=== PATIENT | male | born 1935 | race Caucasian/White ===

== ENCOUNTER 2016-12-06 23:25 | Emergency (ER) | payer MEDICARE, BC ==
--- NOTE | ~2016-12-06 | EKG ---
PATIENT: HARLEY MILLER UNIT #: [id number] Ventricular Rate: 111 BPM Atrial Rate: 111 BPM P-R Interval: 138 ms QRS Duration: 114 ms Q-T Interval: 340 ms QTC Calculation(Bezet): 462 ms P [place]: 70 degrees Calculated R [place]: -85 degrees Calculated T [place]: 90 degrees Diagnosis Line: Sinus tachycardia with occasional Premature Diagnosis Line: ventricular complexes Diagnosis Line: Left anterior fascicular block Diagnosis Line: Non-specific intra-ventricular conduction delay Diagnosis Line: Abnormal ECG Diagnosis Line: When compared with ECG of 23-SEP-2016 06:42, Diagnosis Line: rate faster Diagnosis Line: Confirmed by NARCISA AGUILERA MD ([id number]) on Diagnosis Line: 01/22/2017 6:58:01 AM INTERPRETING : PAT
--- NOTE | ~2016-12-06 | CR72 ---
[facility]. [facility] A Service of [facility] & [facility] RADIOLOGY TEXT RESULTS PATIENT: HARLEY MILLER LOCATION: SED : 33 UNIT #: [id number] AGE: [address]: Yosvany Melton MD SEX: M ORDER DR: [id number] [place] [address] [id number] E MR#: [id number] Acc #: [id number] NAME: HARLEY MILLER. : 1935 SEX: M STUDY DATE/TIME: UNIT: SED ROOM: STUDY DESCRIPTION: CR Chest Single View Portable Attending Physician: Yosvany Melton M.D. Ordering Physician: Yosvany Melton M.D. Primary Care Physician: Sylvia Negron M.D. MEDICAL IMAGING REPORT This report is preliminary unless electronic signature is present. EXAM Portable chest 12/07 at 01:16 INDICATIONS Shortness of air today. History of coronary artery disease. Patient also reports chills and body aches. The patient has a history of lung cancer. TECHNIQUE/COMPARISON AP portable chest is compared with 09/23/2016 FINDINGS Cardiac and mediastinal contours are stable status post CABG. The lungs are emphysematous but clear. No pneumothorax. Prominent central pulmonary arteries may reflect pulmonary arterial hypertension. IMPRESSION Emphysema and CABG change. No acute findings in the chest. Dictated by... Daniel Gutierrez Jr., M.D. THIS IS AN ELECTRONICALLY VERIFIED REPORT Daniel Gutierrez Jr., M.D. at 12/07/2016 9:31 PM RLK/lenka TD: 12/07/2016 16:04 JOB #: [id number] MEDICAL IMAGING REPORT
[~2016-12-06 23:25] MED LIST: ACETAMINOPHEN PO; ACETAMINOPHEN PR; ACETAMINOPHEN650 M1 PO; ASPIRIN PO; ASPIRIN81 M2 PO; ASPIRIN81 MG PO; ATORVASTATIN CA10 MG PO; BYSTOLIC5 MG PO; CARAFATE; CIPRO PO; CIPRO250 MG/5 M PO; CLARITIN D PO; CLEOCIN PO; CLOPIDOGREL BIS75 MG PO; CLOPIDOGREL75 MG PO; FERROUS GLUCON324 MG PO; FLAGYL PO; FOSAMAX PO; HYDROXYZINE HCL25 M1 PO; IMDUR-ER30 M1 PO; IMDUR-ER30 MG PO; IMODIUM2 MG PO; LASIX20 MG PO; LISINOPRIL2.5 MG PO; MEN'S ONE DAILY1 TA1 PO; MOBIC15 MG PO; NITROSTAT0.4 MG SL; OXYGEN; PANTOPRAZOLE SO40 MG PO; PHENERGAN PO; PRINIVIL20 M1 PO; PROAIR HFA8.5 GM INH; PROTONIX PO; SPIRIVA18 MCG INH; STIOLTO RESPIMAT4 GM; STIOLTO RESPIMAT4 GM PO; TENORMIN25 MG PO; THEO-DUR300 MG PO; UNIPHYLL PO; ZEBETA5 MG PO; ZETIA PO
[2016-12-06 23:34] LABS: BASOPHIL# 0.1 X10e3 (0-0.3); BASOPHIL% 0.8 % (0-2.5); EOSINOPHIL# 0.2 X10e3 (0-0.7); EOSINOPHIL% 2.1 % (0.0-7.0); HEMATOCRIT 39.7 % (38.0-50.0); HEMOGLOBIN 12.9 gm/dL (13.0-16.0); LYMPHOCYTE# 0.7 X10e3 (1.0-3.5); LYMPHOCYTE% 9.6 % (17.0-45.0); MEAN CELL VOLUME 100.3 FL (83-96); MEAN CORPUSCULAR HEMOGLOBIN 32.6 PG (28-34); MEAN CORPUSCULAR HGB CONC 32.5 g/dL (30-36); MEAN PLATELET VOLUME 7.8 FL (6.5-11.5); MONOCYTE# 0.2 X10e3 (0-1.0); MONOCYTE% 2.9 % (3.0-12.0); NEUTROPHIL# 6.4 X10e3 (1.5-7.1); NEUTROPHIL% 84.6 % (40-75); PLATELET COUNT 163 X10e3 (140-420); RED BLOOD COUNT 3.96 X10e (3.90-5.60); RED CELL DISTRIBUTION WIDTH 13.8 % (11.0-15.5); WHITE BLOOD COUNT 7.5 X10e3 (4.0-10.5)
[2016-12-06 23:35] LABS: DIFF IND NO
[2016-12-06 23:41] LABS: PROTHROMBIN TIME (PATIENT) 11.3 SECONDS (9.5-12.4)
[2016-12-06 23:49] LABS: ALBUMIN SERUM 4.3 g/dL (3.5-5.0); ALKALINE PHOSPHATASE 157 U/L (32-92); ALT (SGPT) 25 U/L (10-40); AST (SGOT) 39 U/L (10-42); BILIRUBIN, DIRECT 0.1 mg/dL (0.0-0.2); BILIRUBIN,INDIRECT 0.5 mg/dL (0.0-0.9); BILIRUBIN,TOTAL 0.6 mg/dL (0.2-2.0); BLOOD UREA NITROGEN 22 mg/dL (9-23); BUN/CREATININE RATIO 18.33; CALCIUM SERUM 9.6 mg/dL (8.4-10.2); CARBON DIOXIDE 30 mmol/L (22-31); CHLORIDE 101 mmol/L (100-111); CREATININE SERUM 1.2 mg/dL (0.6-1.4); GLOM FILT RATE Estimated ABOVE60 mL/min (>60); GLUCOSE FASTING 139 mg/dL (70-110); POTASSIUM 4.3 mmol/L (3.5-5.1); PROTEIN TOTAL SERUM 7.2 g/dL (6.0-8.3); SODIUM 138 mmol/L (135-145)
[2016-12-07 00:19] LABS: POC - CKMB 2.4 ng/mL (0.0-7.9)
[2016-12-07 00:20] LABS: POC - TROPONIN <0.05 ng/mL (<=0.05)
[2016-12-07 00:28] LABS: INFLUENZA A NEG (NEG); INFLUENZA B NEG (NEG)
[2016-12-07 01:10] LABS: URINE SOURCE CLEAN CATCH
[2016-12-07 01:12] LABS: URINE APPEARANCE CLEAR; URINE BILIRUBIN NEG (NEG); URINE BLOOD NEG (NEG); URINE COLOR YELLOW; URINE GLUCOSE NEG (NORM); URINE KETONE NEG (NEG); URINE LEUKOCYTE ESTERASE NEG (NEG); URINE NITRATE NEG (NEG); URINE PROTEIN NEG (NEG); URINE UROBILINOGEN 0.2 MG/DL (NORM)
[2016-12-07 01:19] LABS: MICRO INDICATED? NO
[2016-12-07] MEDS ORDERED: ZITHROMAX1 G/PKT PO (02:22)
[2016-12-07] MEDS ORDERED: ALBUTEROL17 GM INH (02:22)
[2016-12-07] MEDS ORDERED: HYDROMET SYRUP480 ML PO (02:23)
== END 2016-12-07 02:23 | disposition home or self-care (01) ==
LOC: SED 23:25
PROVIDERS: Emergency Medicine
DX: J44.0 Chronic obstructive pulmonary disease with (acute) lower respiratory infection (principal); J44.1 Chronic obstructive pulmonary disease with (acute) exacerbation; J20.9 Acute bronchitis, unspecified; Z87.891 Personal history of nicotine dependence; Z95.1 Presence of aortocoronary bypass graft; Z90.49 Acquired absence of other specified parts of digestive tract; Z88.0 Allergy status to penicillin
CPT/HCPCS: 36415; 71010; 80048; 80076; 81003; 82553; 83605; 83874; 84484; 85025; 85610; 85730; 87040; 87804; 93005; 94640; 96361; 96374; 99284; J2405

== ENCOUNTER 2016-12-08 02:43 | Emergency (ER) | payer MEDICARE, BC ==
--- NOTE | ~2016-12-08 | CT57 ---
[facility]. [facility] A Service of [facility] & [facility] RADIOLOGY TEXT RESULTS PATIENT: HARLEY MILLER LOCATION: SED : 33 UNIT #: [id number] AGE: [address]: Maynor Worthington MD SEX: M ORDER DR: [id number] [place] [id number] E MR#: [id number] [facility] #: [id number] NAME: HARLEY MILLER : 1935 SEX: M STUDY DATE/TIME: 12/08/2016 03:22 UNIT: SED ROOM: STUDY DESCRIPTION: CT Chest Wo Cont Attending Physician: Maynor Worthington M.D. Ordering Physician: Maynor Worthington M.D. Primary Care Physician: Sylvia Negron M.D. MEDICAL IMAGING REPORT This report is preliminary unless electronic signature is present. EXAM Chest CT, 12/08 at 03:22. INDICATIONS Shortness of air and neck pain that started yesterday. History of lung cancer. History of coronary artery disease. COPD. TECHNIQUE Axial images were obtained through the chest without contrast. Multiplanar reformats were obtained. This CT exam was performed with one or more of the following radiation dose reduction techniques: automatic exposure control, adjustment of mA and/or kV according to patient size, and iterative reconstruction. COMPARISON Comparison is made with 09/12/2016. FINDINGS The exam is degraded by the lack of IV contrast. There is atherosclerotic disease and coronary artery disease. Patient is status post CABG. No pleural or pericardial effusion is seen. There is no adenopathy. There is emphysema. Spiculated left upper lobe density is again seen abutting the mediastinum. This is presumably the patient's primary tumor status post radiation therapy. The bulk of the abnormality today measures about 1.5 x 4.2 cm where it was previously about 2.4 x 4.9 cm. No new pulmonary parenchymal abnormalities are seen. 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 There are no suspicious osseous lesions. Upper abdomen demonstrates changes of cholecystectomy. Cyst in the upper poles of both kidneys are noted. IMPRESSION 1. Decreased size of the patient's left upper lobe tumor compatible with response to therapy. No new pulmonary parenchymal abnormalities are STS. [facility] A Service of [facility] & [facility] RADIOLOGY TEXT RESULTS PATIENT: HARLEY MILLER LOCATION: [facility] : 33 UNIT #: [id number] AGE: [address]: Maynor Worthington MD SEX: M ORDER DR: seen. 2. Emphysema. 3. Atherosclerotic disease and coronary artery disease. Dictated by... Daniel Gutierrez Jr., M.D. THIS IS AN ELECTRONICALLY VERIFIED REPORT Daniel Gutierrez Jr., M.D. at 12/09/2016 6:40 AM JOHANNA/jj TD: 12/08/2016 13:01 JOB #: [id number] MEDICAL IMAGING REPORT
--- NOTE | ~2016-12-08 | CR58 ---
[facility]. [facility] A Service of [facility] & [facility] / [facility] RADIOLOGY TEXT RESULTS PATIENT: HARLEY MILLER LOCATION: SED : 33 UNIT #: [id number] AGE: [address]: Maynor Worthington MD SEX: M ORDER DR: [id number] [place] [address] [id number] E MR#: [id number] Acc #: [id number] NAME: HARLEY MILLER : 1935 SEX: M STUDY DATE/TIME: 12/08/2016 02:52 UNIT: SED ROOM: STUDY DESCRIPTION: CR Cervical Spine 2 or 3 Views Attending Physician: Maynor Worthington M.D. Ordering Physician: Maynor Worthington M.D. Primary Care Physician: Sylvia Negron M.D. MEDICAL IMAGING REPORT This report is preliminary unless electronic signature is present. EXAM Cervical spine 12/08/2016 02:52 INDICATION Neck pain and cramping that started yesterday. No trauma. FINDINGS 5 views of the cervical spine were obtained. No comparison. The patient is osteopenic. No fracture or subluxation is seen. There is multilevel facet arthropathy. Disc spaces are well maintained. Prevertebral soft tissues are normal. IMPRESSION Osteopenia with multilevel facet arthropathy. No fracture or subluxation is seen. Dictated by... Daniel Gutierrez Jr., M.D. THIS IS AN ELECTRONICALLY VERIFIED REPORT Daniel Gutierrez Jr., M.D. at 12/09/2016 6:40 AM JOHANNA/eyad TD: 12/08/2016 12:57 JOB #: [id number] MEDICAL IMAGING REPORT
--- NOTE | ~2016-12-08 | EKG ---
PATIENT: HARLEY MILLER UNIT #: [id number] Ventricular Rate: 66 BPM Atrial Rate: 66 BPM P-R Interval: 152 ms QRS Duration: 118 ms Q-T Interval: 416 ms QTC Calculation(Bezet): 436 ms P [place]: 67 degrees Calculated R [place]: -83 degrees Calculated T [place]: 83 degrees Diagnosis Line: Sinus rhythm with occasional Premature ventricular Diagnosis Line: complexes Diagnosis Line: Left anterior fascicular block Diagnosis Line: Non-specific intra-ventricular conduction delay Diagnosis Line: Abnormal ECG Diagnosis Line: When compared with ECG of 06-DEC-2016 23:07, Diagnosis Line: (unconfirmed) Diagnosis Line: Vent. rate has decreased BY 45 BPM Diagnosis Line: Questionable change in initial forces of Septal Diagnosis Line: leads Diagnosis Line: ST no longer depressed in Anterior leads Diagnosis Line: T wave amplitude has decreased in Inferior leads Diagnosis Line: Confirmed by NARCISA AGUILEAR MD ([id number]) on Diagnosis Line: 01/22/2017 6:59:30 AM INTERPRETING SINA STEWART
[~2016-12-08 02:43] MED LIST changes: +ALBUTEROL17 GM INH; +HYDROMET SYRUP480 ML PO; +ZITHROMAX1 G/PKT PO
[2016-12-08 03:03] LABS: POC - CKMB 2.3 ng/mL (0.0-7.9); POC - TROPONIN 0.08 ng/mL (<=0.05)
== END 2016-12-08 07:19 ==
LOC: SED 02:43
PROVIDERS: Emergency Medicine
DX: I21.4 Non-ST elevation (NSTEMI) myocardial infarction (principal); M54.2 Cervicalgia; Z88.0 Allergy status to penicillin; Z79.899 Other long term (current) drug therapy; Z79.82 Long term (current) use of aspirin
CPT/HCPCS: 71250; 72040; 82553; 83874; 84484; 93005; 99285; J1650

== ENCOUNTER → 2017-02-25 | Outpatient (CLI) | payer MEDICARE, BC ==
[~2017-02-25] MED LIST changes: +CARVEDILOL6.25 MG; +COREG6.25 MG PO; +DULERA 200 MCG/13 GM INH; +IPRAT-ALBUT 0.5-3 ML; +IPRAT-ALBUT 0.5-3 ML NEB; +IPRATR-ALBUTEROL3 ML INH; +ISOSORBIDE MONO30 M1 PO; +LIPITOR; +NITROQUICK0.4 MG PO; +PATIENT'S PHARMACY; +PREDNISONE PO; +REQUIP1 MG; +REQUIP1 MG PO; +SYMBICORT; +SYMBICORT INH; +TOPROL XL PO; +TYLENOL325 M1 PO; +ZITHROMAX PO
--- NOTE | ~2017-02-25 | US136 ---
[facility] A Service of [facility] / [facility] RADIOLOGY TEXT RESULTS PATIENT: HARLEY MILLER LOCATION: CNIV : 33 UNIT #: [id number] AGE: [address]: ySlvia Negron MD SEX: M ORDER DR: [id number] [facility] [address] [place], [place] [address] [id number] MR#: [id number] Acc #: [id number] NAME: HARLEY MILLER : 1935 SEX: M STUDY DATE/TIME: 02/25/2017 14:52 UNIT: CNIV ROOM: STUDY DESCRIPTION: US U/L Ext Art Study [facility] Bil Attending Physician: Sylvia Negron M.D. Referring Physician: Sylvia Negron M.D. Ordering Physician: Sylvia Negron M.D. Primary Care Physician: Sylvia Negron M.D. MEDICAL IMAGING REPORT This report is preliminary unless electronic signature is present EXAM Lower extremity SERGE, 02/26/2017. HISTORY Claudication. FINDINGS The right brachial pressure is 140, left is 152. Right dorsalis pedis pressure is 115, posterior tibial 124, for an SERGE of 0.82 and a first toe pressure of 96 mmHg. The left dorsalis pedis pressure is 90, posterior tibial 95, for an SERGE of 0.63 and a first toe pressure of 75 mmHg. PVR wave forms at the ankle levels are diminished significantly bilaterally. First digital wave forms are intact bilaterally. Arterial wave forms at the dorsalis pedis and posterior tibial arteries demonstrate biphasic wave form at the right dorsalis pedis and posterior tibial artery and monophasic-appearing wave forms at the left dorsalis pedis and posterior tibial artery. IMPRESSION 1. Mild arterial insufficiency of the right lower extremity with adequate perfusion of the first toe. 2. Moderate arterial insufficiency of the left lower extremity with adequate perfusion of the first toe. Dictated by... Ankit Garcia M.D. THIS IS AN ELECTRONICALLY VERIFIED REPORT [facility] A Service of [facility] RADIOLOGY TEXT RESULTS PATIENT: HARLEY MILLER LOCATION: IV : 33 UNIT #: [id number] AGE: [address]: Sylvia Negron MD SEX: M ORDER DR: Ankit Garcia M.D. at 03/04/2017 11:00 AM Bienvenido TD: 02/26/2017 12:33 JOB #: [id number] MEDICAL IMAGING REPORT Page 1 of 1 COPY
== END | disposition home or self-care (01) ==
LOC: CNIV 14:43
DX: I73.9 Peripheral vascular disease, unspecified (principal)
CPT/HCPCS: 93922

== ENCOUNTER 2017-03-04 22:22 | Emergency (ER) | payer MEDICARE, BC ==
--- NOTE | ~2017-03-04 | CR72 ---
[facility] A Service of [facility] RADIOLOGY TEXT RESULTS PATIENT: HARLEY MILLER LOCATION: SED : 33 UNIT #: [id number] AGE: [address]: Gabriel Landa MD SEX: M ORDER DR: [id number] [place] [address] [id number] E MR#: [id number] Acc #: [id number] NAME: HARLEY MILLER. : 1935 SEX: M STUDY DATE/TIME: 03/04/2017 22:55 UNIT: SED ROOM: STUDY DESCRIPTION: CR Chest Single View Portable Attending Physician: Gabriel Landa M.D. Ordering Physician: Gabriel Landa M.D. Primary Care Physician: Sylvia Negron M.D. MEDICAL IMAGING REPORT This report is preliminary unless electronic signature is present. EXAM Portable chest. INDICATION Cough and fever for the past week. PROCEDURE Frontal view of the chest. COMPARISON 12/07/2016 FINDINGS Heart size is unchanged. There is no new dense consolidation. No visible pleural fluid or pneumothorax. IMPRESSION 1. No active process. No dense consolidation. 2. Chronic changes in both lungs are stable. Dictated by... Dereck Pool M.D. THIS IS AN ELECTRONICALLY VERIFIED REPORT Dereck Pool M.D. at 03/09/2017 7:26 AM EED/bertha TD: 03/05/2017 09:38 JOB #: [id number] [facility] A Service of [facility] RADIOLOGY TEXT RESULTS PATIENT: HARLEY MILLER LOCATION: SED : 33 UNIT #: [id number] AGE: [address]: Gabriel Landa MD SEX: M ORDER DR: MEDICAL IMAGING REPORT Page 1 of 1
--- NOTE | ~2017-03-04 | EKG ---
PATIENT: HARLEY MILLER UNIT #: [id number] Ventricular Rate: 100 BPM Atrial Rate: 100 BPM P-R Interval: 136 ms QRS Duration: 112 ms Q-T Interval: 340 ms QTC Calculation(Bezet): 438 ms P [place]: 70 degrees Calculated R [place]: -83 degrees Calculated T [place]: 87 degrees Diagnosis Line: Normal sinus rhythm Diagnosis Line: Possible Left atrial enlargement Diagnosis Line: Left anterior fascicular block Diagnosis Line: Septal infarct (cited on or before 04-MAR-2017) Diagnosis Line: Lateral infarct (cited on or before 04-MAR-2017) Diagnosis Line: Abnormal ECG Diagnosis Line: When compared with ECG of 08-DEC-2016 04:03, Diagnosis Line: Premature ventricular complexes are no longer Diagnosis Line: Present Diagnosis Line: Vent. rate has increased BY 34 BPM Diagnosis Line: Questionable change in initial forces of Septal Diagnosis Line: leads Diagnosis Line: ST no longer depressed in Inferior leads Diagnosis Line: Confirmed by EDGAR YU MD ([id number]) on Diagnosis Line: 03/05/2017 7:12:34 PM INTERPRETING MD: GIGI RICE
[~2017-03-04 22:22] MED LIST changes: -CARVEDILOL6.25 MG; -COREG6.25 MG PO; -DULERA 200 MCG/13 GM INH; -IPRAT-ALBUT 0.5-3 ML; -IPRAT-ALBUT 0.5-3 ML NEB; -IPRATR-ALBUTEROL3 ML INH; -ISOSORBIDE MONO30 M1 PO; -LIPITOR; -NITROQUICK0.4 MG PO; -PATIENT'S PHARMACY; -PREDNISONE PO; -REQUIP1 MG; -REQUIP1 MG PO; -SYMBICORT; -SYMBICORT INH; -TOPROL XL PO; -TYLENOL325 M1 PO; -ZITHROMAX PO
[2017-03-04] MEDS ORDERED: SYMBICORT (22:32)
[2017-03-04] MEDS ORDERED: REQUIP1 MG (22:33)
[2017-03-04] MEDS ORDERED: IPRAT-ALBUT 0.5-3 ML (22:33)
[2017-03-04] MEDS ORDERED: LIPITOR (22:34)
[2017-03-04] MEDS ORDERED: CARVEDILOL6.25 MG (22:34)
[2017-03-04 23:19] LABS: BASOPHIL% 0.6 % (0-2.5); EOSINOPHIL# 0.1 X10e3 (0-0.7); EOSINOPHIL% 0.8 % (0.0-7.0); HEMOGLOBIN 12.3 gm/dL (13.0-16.0); LYMPHOCYTE# 0.4 X10e3 (1.0-3.5); LYMPHOCYTE% 5.5 % (17.0-45.0); MEAN CELL VOLUME 98.5 FL (83-96); MEAN CORPUSCULAR HEMOGLOBIN 33.6 PG (28-34); MEAN CORPUSCULAR HGB CONC 34.1 g/dL (30-36); MEAN PLATELET VOLUME 8.6 FL (6.5-11.5); MONOCYTE% 12.3 % (3.0-12.0); NEUTROPHIL# 6.3 X10e3 (1.5-7.1); NEUTROPHIL% 80.8 % (40-75); PLATELET COUNT 188 X10e3 (140-420); RED BLOOD COUNT 3.65 X10e (3.90-5.60); RED CELL DISTRIBUTION WIDTH 13.5 % (11.0-15.5); WHITE BLOOD COUNT 7.8 X10e3 (4.0-10.5)
[2017-03-04 23:21] LABS: DIFF IND NO
[2017-03-04 23:35] LABS: BUN/CREATININE RATIO 23.84; CALCIUM SERUM 9.6 mg/dL (8.4-10.2); CREATININE SERUM 1.3 mg/dL (0.6-1.4); GLOM FILT RATE Estimated 50.5 mL/min (>60)
[2017-03-04 23:37] LABS: POC - CKMB 4.6 ng/mL (0.0-7.9); POC - TROPONIN <0.05 ng/mL (<=0.05)
== END 2017-03-05 01:34 | disposition home or self-care (01) ==
LOC: SED 22:22
PROVIDERS: Emergency Medicine
DX: J44.1 Chronic obstructive pulmonary disease with (acute) exacerbation (principal); I10 Essential (primary) hypertension; I73.9 Peripheral vascular disease, unspecified; I25.2 Old myocardial infarction; K21.9 Gastro-esophageal reflux disease without esophagitis; Z88.0 Allergy status to penicillin; Z79.82 Long term (current) use of aspirin; Z79.899 Other long term (current) drug therapy
CPT/HCPCS: 36415; 71010; 80048; 82553; 83880; 84484; 85025; 93005; 94640; 96374; 99284; J2930

== ENCOUNTER 2017-03-30 16:31 | Inpatient (IN) | payer MEDICARE, BC ==
--- NOTE | ~2017-03-30 | US84 ---
[id number] [facility] [address] [place], [place] [address] [id number] I MR#: [id number] Acc #: [id number] NAME: HARLEY MILLER : 1935 SEX: M STUDY DATE/TIME: 03/30/2017 21:48 UNIT: [facility] ROOM: [facility] STUDY DESCRIPTION: US LE Veins Complete Geoff Stdy Attending Physician: Krystina Oropeza M.D. Ordering Physician: Aicha White M.D. Primary Care Physician: Sylvia Negron M.D. MEDICAL IMAGING REPORT This report is preliminary unless electronic signature is present EXAM Bilateral lower extremity venous Doppler INDICATIONS Shortness of air and bilateral lower extremity edema for the past 2 weeks. PROCEDURE Salazar-scale color Doppler spectral imaging deep veins right and left leg. COMPARISON STUDIES None. FINDINGS Deep veins in the right and left leg compress normally and show normal color Doppler and spectral characteristics. IMPRESSION No evidence for DVT in the right or left leg. Dictated by... Dereck Pool M.D. THIS IS AN ELECTRONICALLY VERIFIED REPORT Dereck Pool M.D. at 03/31/2017 9:55 PM BOBBY/marisol TD: 03/31/2017 11:27 JOB #: [id number] MEDICAL IMAGING REPORT Page 1 of 1 COPY
--- NOTE | ~2017-03-30 | CO ---
Unit #: [id number] #: [id number] Patient: HARLEY MILLER [id number] [address] [place], [place] [address] [id number] I MR#: [id number] NAME: HARLEY MILLER. ROOM: 314 Age: 81 Sex: M Admission Date: 03/30/2017 : 1935 Attending Physician: Krystina Oropeza M.D. Primary Care Physician: Sylvia Negron M.D. Consultation Date: 03/31/2017 CONSULTATION REPORT JOB NOTE: CC: DR. LEONARDO REASON FOR CONSULTATION Dyspnea. HISTORY OF PRESENT ILLNESS This is an 81-year-old white male, who is known to Dr. Virk at [facility], who has a history of coronary artery disease where he underwent coronary artery bypass graft x4 in 1999. In 2000, he had a recurrence of chest pain and had cardiac stents placed. His last cardiac catheterization was in 2013 after a myocardial infarction where he underwent thrombectomy with drug-eluting stent to the saphenous vein graft to the diagonal branch. The patient was in his usual state of health until 4 o'clock in the morning when he developed sudden onset of dyspnea, cough, subjective fever, and chills. He had yellow to green sputum production. He denies any chest pain. Positive for paroxysmal nocturnal dyspnea, but no leg edema. Denies palpitations. He came to the emergency room for evaluation where he was admitted with respiratory failure. He was subsequently admitted to the intensive care unit. His troponin has been negative with no acute ischemic changes. BNP 1217. Chest x-ray was concerning for heart failure. PAST MEDICAL HISTORY 1. A 2D echocardiogram on 12/09/2016 at [facility] with ejection fraction of 35% to 40% with impaired left ventricular relaxation. There is mild left atrial enlargement and moderate right atrial enlargement. Trace to mild mitral regurgitation. 2. Coronary artery bypass graft x4 in 1999. 3. Angioplasty and stent to the right coronary artery in 2000, no details available. 4. Cardiac catheterization after a non-ST elevation myocardial infarction on 06/23/[address] Virk at [facility] with left main normal. LAD 100%. GALINDO to the LAD widely patent with retrograde filling of a small second diagonal branch. Saphenous vein graft to the first diagonal branch 80% with heavy thrombus burden. Saphenous vein graft to the presumed obtuse marginal branch is occluded. This is unchanged from previous angiography in 2012. Right coronary artery stents in the mid segment are widely patent. A 30% to 40% disease in the proximal to mid to distal segments are noted. No graft to the right coronary artery. 5. Status post successful thrombectomy with drug-eluting stent to the saphenous vein graft to the diagonal branch. 6. Peripheral vascular disease status post right carotid endarterectomy Unit #: [id number] #: [id number] Patient: HARLEY MILLER in 10/2014. 7. Hypertension. 8. Hyperlipidemia. 9. COPD, on home oxygen. 10. TIA. 11. Lung cancer status post radiation therapy. 12. Chronic anemia. 13. GERD. 14. Anxiety. 15. Former smoker. 16. Chronic systolic/diastolic heart failure. PAST SURGICAL HISTORY 1. Coronary artery bypass graft x4. 2. Cholecystectomy. 3. Right carotid endarterectomy. 4. Left finger I and D secondary to Staph infection. SOCIAL HISTORY The patient quit smoking in 1999. He has previously smoked for more than 50 years. Ambulates with a walker. FAMILY HISTORY Brother from a sudden cardiac in his 60s. REVIEW OF SYSTEMS CONSTITUTIONAL: Reports subjective fever and chills. No weight gain or weight loss. HEENT: No headache, hearing or vision changes, or difficulty with swallowing. No dizziness. CARDIOVASCULAR: Has no symptoms of angina. Denies palpitations. No paroxysmal nocturnal dyspnea or orthopnea. Denies syncope or near syncope. RESPIRATORY: Positive for shortness of breath with productive cough with yellow to green sputum. No hemoptysis. GASTROINTESTINAL: Positive for nausea. No abdominal pain, vomiting, or diarrhea. EXTREMITIES: Negative for lower extremity edema. PHYSICAL EXAMINATION VITAL SIGNS: Blood pressure 118/55, heart rate 97, temperature is 98.4, and BMI 18. GENERAL: This is an 81-year-old small-framed white male, who is in no acute respiratory distress. NEUROLOGIC: He is awake, alert, and oriented. There are obvious focal weaknesses. NECK: Trachea is midline. No thyromegaly. No lymphadenopathy. No jugular venous distention. HEART: S1 and S2. Heart sounds are normal. No murmurs, rubs, or clicks. Regular rate and rhythm. CHEST: Clear to exam without rales, rhonchi, or wheezes. ABDOMEN: Soft and nontender with bowel sounds present. EXTREMITIES: Without leg edema. SKIN: Pale and dry. DIAGNOSTIC STUDIES LABORATORY RESULTS: Sodium 135, potassium 4.3, BUN is 22, creatinine 1.1, and glucose 119. BNP 1217. CK total 25. Troponin less than 0.05 and 0.03. White count 10.7, hemoglobin 10.7, hematocrit 33.4, and platelet Unit #: [id number] #: [id number] Patient: AHRLEY MILLER count is 190. IMAGING STUDIES: Chest x-ray shows bilateral interstitial opaque densities, right lung airspace opaque density. CARDIOVASCULAR STUDIES: Electrocardiogram; normal sinus rhythm, rate at 83 beats per minute with right atrial enlargement. Old anterolateral SD. There is Q waves noted in the anterolateral leads. Left axis deviation. IMPRESSION 1. Angina equivalent paroxysmal nocturnal dyspnea. 2. Acute on chronic systolic/diastolic heart failure. 3. Rule out restenoses of saphenous vein graft stent. 4. Chronic obstructive pulmonary disease. 5. Status post coronary artery bypass graft in 1999 with percutaneous coronary intervention and stent to the right coronary artery in 2000. 6. Percutaneous coronary intervention and stent to the saphenous vein graft to the diagonal 06/2014. 7. History of non-small cell lung cancer, status post radiation therapy. PLAN 1. Cardiology was consulted for evaluation of dyspnea. The patient's dyspnea could be an angina equivalent. We will continue to trend cardiac enzymes and troponin to rule out myocardial infarction. Consider repeat cardiac catheterization if he has not had an ischemic evaluation in the last 1 to 2 years. We will obtain records from Dr. Virk's office. 2. Increase Lasix to diurese. 3. We will follow the patient with you. 4. Follow up with Dr. Virk upon discharge. Dictated by... Law Briggs A.P.R.N. for Nely Vides/mata TD: 04/03/2017 03:40 JOB #: [id number] CONSULTATION REPORT Page 1 of 1 X Law Briggs APRN CONSULTATION REPORT
--- NOTE | ~2017-03-30 | ST ---
Unit #: [id number] #: [id number] Patient: HARLEY MILLER [id number] [facility] [address] [place], [place] [address] [id number] I MR#: [id number] NAME: HARLEY MILLER : 1935 SEX: M STUDY DATE/TIME: [id number]: 314 STUDY DESCRIPTION: Stress Test Attending Physician: Krystina Oropeza M.D. Primary Care Physician: Sylvia Negron M.D. CARDIOLOGY REPORT EXAM Lexiscan Cardiolite Stress Test DESCRIPTION Baseline EKG - normal sinus rhythm with ventricular rate 70 beats/minute, Q waves in V1, poor R wave progression, left ventricular hypertrophy, left bundle branch block, some ST-T wave abnormalities in inferior lateral leads. Lexiscan is a four minute test with Lexiscan being injected within the first minute followed by Cardiolite. EKG during the test was equivocal to baseline, continued to show some ST-T wave abnormalities in inferior lateral leads. Also, occasional frequent premature ventricular complex. Maximum heart rate response was 90 beats/minute with a maximum blood pressure response of 167/100 mmHg. The patient had no complaints of chest pain, palpitations or dizziness. Had increased shortness of breath and fatigueness which resolved in recovery phase. Cardiolite was injected after Lexiscan within the first minute of the test. Radionuclide test pending. Please correlate with nuclear images. Dictated by... Erna Fonseca A.P.R.N. for Nely Vides/apurva TD: 04/02/2017 11:10 JOB #: [id number] Unit #: [id number] #: [id number] Patient: HARLEY MILLER CARDIOLOGY REPORT Page 1 of 1 X Erna Fonseca APRN CARDIOLOGY REPORT
--- NOTE | ~2017-03-30 | HP ---
Unit #: [id number] #: [id number] Patient: HARLEY MILLER [id number] [address] [place], [place] [address] [id number] I MR#: [id number] NAME: HARLEY MILLER. ROOM: 25241 Age: 81 Sex: M Admission Date: 03/30/2017 : 1935 Attending Physician: Aicha White M.D. Primary Care Physician: Sylvia Negron M.D. HISTORY AND PHYSICAL CHIEF COMPLAINT Eedoe-ex-ajjbhad hypoxic hypercapnic respiratory failure. HISTORY This pleasant 81-year-old male with COPD on nocturnal oxygen, ischemic cardiomyopathy, peripheral vascular disease and previous XRT for lung cancer, is admitted for shortness of breath and possible pneumonia. The patient states that he was well until four o'clock this morning when he developed sudden shortness of breath with a deep cough productive of yellow-green sputum and chills, denies chest pain with the above. However, he experienced nausea and sensation of imbalance with worsening shortness of breath this afternoon. EMS have him nitroglycerin and aspirin which seemed to help his symptoms. When he arrived in this emergency department, his ABG was consistent with hypoxic hypercapnic respiratory failure. He was immediately placed on BiPAP, given cefepime, tobramycin and DuoNebs with improvement of his symptoms. His BNP is elevated to 1217. Chest x-ray shows right basilar atelectasis versus infiltrate along with a COPD. However, he is afebrile with a normal white count. At this time he is feeling markedly improved, and his O2 saturation is 100% on 2.5 L of oxygen. BiPAP is no longer in place. PAST MEDICAL HISTORY 1. Ischemic cardiomyopathy, ejection fraction 20% to 25% on echo 09/2016. Patient is status post CABG, PCI and stents followed by Dr. Virk. Previous echo also revealed pulmonary hypertension and valvular heart disease. 2. Peripheral vascular disease, status post right carotid endarterectomy. 3. TIA. 4. Hypertension. 5. Hyperlipidemia. 6. COPD, on nocturnal oxygen. 7. Status post XRT for lung cancer about six months ago. 8. Chronic anemia. 9. GERD. 10. Anxiety. 11. Cholecystectomy. 12. Left hand surgery for a staph infection. ALLERGIES Penicillin. Unit #: [id number] #: [id number] Patient: HARLEY IMLLER HOME MEDICATIONS 1. Imdur 30 mg daily. 2. Symbicort 160/4.5 two puffs b.i.d. 3. DuoNebs q.4 h. 4. Protonix 40 mg daily. 5. Requip 1 mg daily. 6. Coreg 6.25 mg daily. 7. Lipitor 10 mg daily. 8. Plavix 75 mg daily. 9. Lasix 20 mg daily. FAMILY HISTORY Heart disease. SOCIAL HISTORY The patient stopped smoking in 1999; 21-ymhq-lcyd tobacco use, does not drink alcohol. He lives alone. His recently last month. REVIEW OF SYSTEMS Notable for shortness of breath, productive cough, nausea, dizziness, CAD, peripheral vascular disease, TIA, hypertension, hyperlipidemia, COPD, lung cancer, chronic anemia, GERD, anxiety, abovementioned surgeries. All other systems were reviewed and are otherwise negative. PHYSICAL EXAMINATION GENERAL: Pleasant, thin 81-year-old male currently in no acute distress. VITAL SIGNS: His O2 saturation is 100% on 2.5 L of oxygen after abovementioned treatment. Temperature 97.4. Pulse 68. Respirations 19. Blood pressure 111/61. HEENT EXAMINATION: Eyes PERRLA, extraocular muscles are intact. Pharynx is benign. NECK: Supple, without adenopathy or thyromegaly. CHEST: Diminished breath sounds. CARDIAC: Normal S1 and S2, soft systolic murmur. ABDOMEN: Bowel sounds are present. No hepatosplenomegaly, tenderness or masses. EXTREMITIES: Notable for bilateral pedal edema. Pedal pulses are diminished. No ulcers on the feet. NEUROLOGIC EXAM: Patient is awake, alert, oriented. His cranial nerves are intact although he is hard of hearing. He has equal strength throughout. DIAGNOSTIC STUDIES LABORATORY: On admission labs hematocrit is 30.5, down from a hematocrit of 36 last month, MCV is 101.3, normal white count, platelet count. Normal coags. SMA-12: Chloride is 96, CO2 37, albumin is 2.8. BNP is 1217 which is elevated from before. Normal lactic acid level. Negative cardiac markers. Initial ABG pH 7.25, pCO2 84, pO2 104, O2 saturation 96.2% on 4 L of oxygen. IMAGING: Chest x-ray with basilar atelectasis versus pneumonia and COPD. CARDIOVASCULAR: EKG shows a sinus bradycardia, rate 58, left anterior fascicular block, poor R-wave progression, occasional PVC. In reviewing his previous EKG in the computer he did have a bifascicular block in the past with a right bundle-branch block and left anterior fascicular block. However, I do not see a right bundle-branch block Unit #: [id number] #: [id number] Patient: HARLEY MILLER currently. ASSESSMENT 1. Zflgs-bj-uctbvuh hypoxic hypercapnic respiratory failure with productive cough which may represent community-acquired pneumonia. However, normal white count and no fever with the above. I am concerned because patient did experience nausea and dizziness, better after nitroglycerin, that this could represent a cardiac etiology. BNP is markedly elevated and he does have a history of ischemic cardiomyopathy. Will treat for both community-acquired pneumonia as well as possible congestive heart failure at this time. 2. Ischemic cardiomyopathy, ejection fraction 20% to 25%. 3. Chronic obstructive pulmonary disease, on nocturnal oxygen. 4. Peripheral vascular disease. 5. Essential hypertension. 6. Status post XRT for lung cancer. PLANS 1. Gentle IV Lasix, obtain Is and Os and daily weights, continue cardiac medications and obtain serial cardiac enzymes. Will also consult Cardiology. 2. Antibiotics in the form of cefepime and doxycycline, steroids, bronchodilators. The patient's stringed instrument repairer was already consulted and they will see in the morning. I will ask for a repeat ABG off of BiPAP, and ask for a repeat chest x-ray in the morning. Blood and sputum cultures will be obtained. 3. DVT and gastritis prophylaxis. Dictated by Aicha White M.D. AML/cf TD: 03/30/2017 21:22 JOB #: [id number] HISTORY AND PHYSICAL Page 1 of 1 X Aicha White MD HISTORY AND PHYSICAL
--- NOTE | ~2017-03-30 | CR72 ---
[facility] A Service of [facility] RADIOLOGY TEXT RESULTS PATIENT: HARLEY MILLER LOCATION: [facility]-25 : [birth year] UNIT #: [id number] AGE: [address]: Krystina Oropeza MD SEX: M ORDER DR: [id number] [facility] [address]. [place], [place] [address] [id number] I MR#: [id number] Acc #: [id number] NAME: HARLEY MILLER. : 1935 SEX: M STUDY DATE/TIME: 03/30/2017 17:25 UNIT: [facility] ROOM: [facility] STUDY DESCRIPTION: CR Chest Single View Portable Attending Physician: Krystina Oropeza M.D. Ordering Physician: Daniel Aquino M.D. Primary Care Physician: Sylvia Negron M.D. MEDICAL IMAGING REPORT This report is preliminary unless electronic signature is present EXAM Portable chest 03/30/2017 HISTORY 81-year-old male with shortness of air beginning today. Congestive heart failure. COPD. COMPARISON Chest 03/04/2017. FINDINGS Frontal chest demonstrates slight interval worsening of right basilar atelectasis/infiltrate. Early pneumonia not excluded in the appropriate clinical setting. Left lung clear. Emphysematous changes bilaterally. No pneumothorax. Heart size and mediastinum are within normal limits. Pulmonary vasculature unremarkable. Median sternotomy wires. IMPRESSION 1. Interval development of right basilar atelectasis/infiltrate. Early pneumonia not excluded in the appropriate clinical setting. 2. Emphysema. Dictated by... Hany Kaminski M.D. THIS IS AN ELECTRONICALLY VERIFIED REPORT Hany Kaminski M.D. at 04/01/2017 1:33 PM CAROLINE/eyad TD: 03/31/2017 08:16 JOB #: [id number] [facility] A Service of [facility] RADIOLOGY TEXT RESULTS PATIENT: HARLEY MILLER LOCATION: [facility] : 33 UNIT #: [id number] AGE: [address]: Krystina Oropeza MD SEX: M ORDER DR: MEDICAL IMAGING REPORT Page 1 of 1 COPY
--- NOTE | ~2017-03-30 | A ---
[facility] Nutrition Therapy DATE: 03/31/17 Patient: HARLEY MILLER Physician: JAMES Address: [address] [place] [address] Room/Bed: [address], Zip: [place] [address] Admit Date: 03/30/17 Date of : [birth year] Height: 5 8 Weight: 111 50.5 NUTRITIONAL ASSESSMENT: REASON: Low BMI assessment 81 yo male admitted for CHF exacerbation, acute on chronic respiratory failure PMH: Ischemic cardiomyopathy, PVD, TIA, lung cancer s/p XRT, HTN, HLD, COPD, chronic anemia, GERD, cholecystectomy Anthropometrics: Ht: 5'7" Wt: 53 kg BMI: 18.3 IBW: 67.3 kg, 79% IBW Labs: Cl- 95 Gluc 119 Alb 2.8 BNP 1217 Meds: Lipitor, furosemide, zofran, laxative of choice, solu-medrol, NaCl, protonix I/O & Bowel function: 30/800, last BM 03/31 Skin Integrity: Hernia abdomen Redness- coccyx Scabs/ bruising BUE Edema: None noted Diet: Heart healthy/ no caffiene Assessment: Chart reviewed, events noted. 81 yo male admitted for CHF exacerbation. RD assessing the pt for low BMI of 18.3. RN reports that the pt consumed 100% of breakfast this AM, and is now asleep. RN asked that RD let the pt sleep, as he was quite anxious and had a hard time falling asleep. RN also reports that the pt appears thin, and that his three weeks ago. Pt has been on and off BiPAP. Per previous admission weights, it appears that the pt has lost ~4# since September 2016. RD will order supplements and follow up with the pt. Dx: Potential for inadequate protein energy intake RT pt grieving, advance age AEB weight trending down since 2016, BMI 18.3, 79% IBW. Intervention: 1. Heart healthy diet/ no caff 2. Ensure compact TID Monitoring, Evaluation and Goals: 1. Oral intake; tolerate >50-75% meals and supplements [facility] Nutrition Therapy DATE: 03/31/17 Patient: HARLEY MILLER Physician: JAMES Address: [address] [place] [address] Room/Bed: [address], Zip: [place] [address] Admit Date: 03/30/17 Date of : [birth year] Height: 5 8 Weight: 111 50.5 2. Improve labs; glucose 3. Weight; monitor, prevent loss of lean body mass 4. Skin; prevent breakdown Recommendations: 1. Continue heart healthy diet as tolerated. 2. Ensure compact TID for supplemental nutrition. This is a low volume supplement (118 mL each). 3. Monitor the pt's weights closely. 4. Appreciate staff encouraging adequate nutritional intake as needed. Pt is at mild-moderate nutritional risk. RD will follow per protocol. Respectfully, VICTOR HUGO LUBIN RD, LD [facility] and [facility] cc: client file
--- NOTE | ~2017-03-30 | TH ---
Unit #: [id number] #: [id number] Patient: HARLEY MILLER [id number] [address] [address] [id number] I MR#: [id number] NAME: HARLEY MILLER : 1935 SEX: M STUDY DATE/TIME: 04/02/2017 UNIT: C3A PCU ROOM: 314 STUDY DESCRIPTION: Attending Physician: Krystina Oropeza M.D. Primary Care Physician: Sylvia Negron M.D. CARDIOLOGY REPORT DESCRIPTION This 81-year-old patient received 0.4 mg of Lexiscan intravenously followed by 33.5 mCi of technetium-99 Cardiolite and images were obtained according to a standard SPECT protocol. For rest images, 12 mCi of Cardiolite was injected. Images were reviewed in both phases. FINDINGS Overall study quality is excellent. LV cavity size is normal in both images. There is no lung activity. RV is normal. Rotating raw data showed no significant artifact, soft tissue attenuation, or GI uptake. Review of SPECT images showed moderate decrease in the radiotracer concentration in a small apical segment in the stress images. In the rest images, this defect is fixed. Gated images showed mild global hypokinesis of the LV with estimated LV ejection fraction of 41%. IMPRESSION 1. Myocardial perfusion imaging is abnormal. 2. No evidence of stress-induced ischemia. 3. Intermediate likelihood of a small apical infarct. 4. Moderate global hypokinesis of the left ventricle with an estimated left ventricular ejection fraction of 41%. 5. Normal left ventricle dimensions. 1. Dictated by... Nely Moses/anjel TD: 04/02/2017 16:50 JOB #: [id number] CARDIOLOGY REPORT Page 1 of 1 X Rachel Child MD CARDIOLOGY REPORT
--- NOTE | ~2017-03-30 | EKG ---
PATIENT: HARLEY MILLER UNIT #: [id number] Ventricular Rate: 83 BPM Atrial Rate: 83 BPM P-R Interval: 136 ms QRS Duration: 106 ms Q-T Interval: 376 ms QTC Calculation(Bezet): 441 ms P [place]: 78 degrees Calculated R [place]: -81 degrees Calculated T [place]: 77 degrees Diagnosis Line: Normal sinus rhythm Diagnosis Line: Possible Left atrial enlargement Diagnosis Line: Incomplete right bundle branch block Diagnosis Line: Left anterior fascicular block Diagnosis Line: Abnormal ECG Diagnosis Line: When compared with ECG of 30-MAR-2017 18:16, Diagnosis Line: Premature ventricular complexes are no longer Diagnosis Line: Present Diagnosis Line: Questionable change in initial forces of Lateral Diagnosis Line: leads Diagnosis Line: Confirmed by NARCISA AGUILERA MD ([id number]) on Diagnosis Line: 04/01/2017 10:49:56 AM INTERPRETING MD: PAT
--- NOTE | ~2017-03-30 | CR72 ---
[facility] A Service of [facility] RADIOLOGY TEXT RESULTS PATIENT: HARLEY MILLER LOCATION: [place] [address]- : [birth year] UNIT #: [id number] AGE: [address]: Krystina Oropeza MD SEX: M ORDER DR: [id number] [facility] [address] [place], [place] [address] [id number] I MR#: [id number] Acc #: [id number] NAME: HARLEY MILLER. : 1935 SEX: M STUDY DATE/TIME: 03/31/2017 17:13 UNIT: [facility] ROOM: [facility] STUDY DESCRIPTION: CR Chest Single View Portable Attending Physician: Krystina Oropeza M.D. Ordering Physician: Aicha White M.D. Primary Care Physician: Sylvia Negron M.D. MEDICAL IMAGING REPORT This report is preliminary unless electronic signature is present EXAM Single view chest INDICATION Shortness of air, congestive heart failure, and congestion, 1-day duration. FINDINGS Single portable AP view of the chest compared to 03/30/2017. Heart and mediastinal contours are unchanged. Patient is status post CABG. There is improving interstitial opacities as well as right basilar airspace opacity. There may be small pleural effusions. IMPRESSION Slight improvement in bilateral interstitial opacities and the right lower lobe airspace opacity. Dictated by... Shane Barajas M.D. THIS IS AN ELECTRONICALLY VERIFIED REPORT Shane Barajas M.D. at 04/01/2017 8:43 AM KIRILL/eric TD: 04/01/2017 01:12 JOB #: [id number] MEDICAL IMAGING REPORT Page 1 of 1 COPY
--- NOTE | ~2017-03-30 | DS ---
Unit #: [id number] #: [id number] Patient: HARLEY MILLER [id number] [address] [place], [place] [address] [id number] I MR#: [id number] NAME: HARLEY MILLER. ROOM: 216 Age: 81 Sex: M Admission Date: 03/30/2017 : 1935 Discharge Date: 04/04/2017 Attending Physician: Krystina Oropeza M.D. Primary Care Physician: Sylvia Negron M.D. DISCHARGE SUMMARY REASON FOR ADMISSION Ixdps-mh-mwadyxt hypercapnic/hypoxic respiratory failure. HISTORY OF PRESENT ILLNESS/HOSPITAL COURSE Patient is an 81-year-old male with underlying history of COPD, on home O2, ischemic cardiomyopathy, peripheral vascular disease, prior history of lung carcinoma, was admitted secondary to increased dyspnea. His initial BNP was also elevated at 1217. He was noted to be acutely hypoxic in the emergency room. He was placed on BiPAP support. Subsequently he was placed in the ICU and consultation was placed to Dr. Zamora for evaluation. Though ICU course he was gradually weaned off of BiPAP, placed on O2 via nasal cannula, appropriate medications including IV Solu-Medrol, aerosols, as well as antibiotics were transitioned to p.o. as well as decreasing the frequency. From a respiratory standpoint he has shown improvement and he has been cleared from a pulmonary standpoint for discharge. No further antibiotics will be administered at the time of discharge. Secondary to elevated BNP as well as prior history of ischemic cardiomyopathy, consultation was also placed to Dr. Espinosa for evaluation. Appropriate medication adjustments were made. Medical management was recommended. Secondary to chronic deconditioning as well as frequent hospital visits, PT and OT services recommended rehab, therefore patient will be transitioned to rehab at the time of discharge. I did have a lengthy discussion with the patient's daughter who is a hospice nurse and did apprise her of the patient's overall long-term prognosis which is poor. I did recommend consideration should be given to hospice as she states that after rehab the patient will be transitioned either home or long-term long term. If he has any further respiratory issues and/or further compromise, strong consideration will be given to hospice at that point in time. For now he will be continued on his routine medications with transition to rehab later this afternoon. Long-term prognosis is poor. FINAL DISCHARGE DIAGNOSES 1. Acute hypoxic/hypercapnic respiratory failure. Unit #: [id number] #: [id number] Patient: HARLEY MILLER 2. Dyspnea, multifactorial in origin. 3. Ischemic cardiomyopathy, ejection fraction 20% to 25%. 4. Prior history of coronary artery disease with status post coronary artery bypass graft and stents placed. 5. Peripheral vascular disease. 6. Prior history of right carotid endarterectomy. 7. Prior history of transient ischemic attack. 8. Hypertension. 9. Hyperlipidemia. 10. End-stage chronic obstructive pulmonary disease. 11. Prior history of lung carcinoma, status post radiation in past. 12. Anemia. 13. Anxiety. 14. Chronic deconditioning. 15. Mild cognitive impairment. FINAL DISCHARGE MEDICATIONS 1. Prednisone 40 mg p.o. daily x5 days. 2. Tylenol 650 mg p.o. q.6 h. p.r.n. 3. Requip 1 mg p.o. daily. 4. Coreg 6.25 mg p.o. daily. 5. Dulera 200/5 two puffs b.i.d. 6. Lasix 20 mg p.o. b.i.d. 7. Lipitor 10 mg p.o. q.h.s. 8. Florastor 250 mg p.o. b.i.d. 9. Aspirin 81 mg daily. 10. Plavix 75 mg p.o. daily. 11. Protonix 40 mg p.o. daily. 12. Imdur 30 mg p.o. daily. DISCHARGE CONDITION Stable. DISCHARGE DISPOSITION Rehab for ongoing care. Dictated by... Krystina Oropeza M.D. XAVIER/vanessa TD: 04/04/2017 14:27 JOB #: [id number] DISCHARGE SUMMARY Page 1 of 1 X Krystina Oropeza MD X DISCHARGE SUMMARY
--- NOTE | ~2017-03-30 | CO ---
Unit #: [id number] #: [id number] Patient: HARLEY MILLER [id number] [facility]. [place], [place] [address] [id number] MR#: [id number] NAME: HARLEY MILLER. ROOM: [facility] Age: 81 Sex: M Admission Date: 03/30/2017 : 1935 Attending Physician: Krystina Oropeza M.D. Primary Care Physician: Sylvia Negron M.D. Consultation Date: 03/31/2017 CONSULTATION REPORT REASON FOR CONSULTATION Respiratory failure. HISTORY OF PRESENT ILLNESS Mr. Miller is an 81-year-old gentleman, well known to me from the office. He has severe emphysema; chronic respiratory failure with nocturnal oxygen; non-small cell carcinoma of the lung, status post radiation therapy; and cardiomyopathy. He states he has been short of breath for 2 months, but with persistent questioning, he apparently was doing relatively well until the day of admission and the day prior to admission. His about 3 weeks ago and he has been trying to move out of his house into an apartment. He is gradually moving his furniture over. He did notice some mucopurulent sputum, but no wheezing, chest pain, or fever. He had worsening shortness of breath, some dizziness, and presented to the emergency room. He was found to have hypercapnic hypoxemic respiratory failure. Chest x-ray was read as atelectasis versus pneumonia. BNP was elevated. He has undergone diuresis, antibiotic therapy, and steroids for airways disease. He does state he feels somewhat better today. Having said that, his arterial blood gas is worse. He is currently awake, alert, and oriented x4. PAST MEDICAL HISTORY Remarkable for emphysema; chronic respiratory failure, on nocturnal oxygen, previously on 2 L, but according to his history, he has just been increased to 4 L at night apparently because of abnormal nocturnal oximetry. He has a history of ischemic cardiomyopathy, peripheral vascular disease, hypertension, hyperlipidemia, past TIA, chronic anemia, and gastroesophageal reflux. MEDICATIONS At home, he is on Symbicort 2 puffs b.i.d.; nebulized bronchodilators as needed; oxygen at night, yesterday he did put his oxygen on during the day; Imdur; Protonix; Requip; Coreg; Lipitor; Plavix; and Lasix. ALLERGIES Penicillin, unknown reaction. FAMILY HISTORY No familial lung disease. SOCIAL HISTORY His 3 weeks ago. He lives alone. He is currently moving as above. Stopped smoking 15 to 17 years ago. Unit #: [id number] #: [id number] Patient: HARLEY MILLER REVIEW OF SYSTEMS No fever or chills. He denies chest pain or palpitations. No abdominal pain, melena, hematochezia, hematuria, dysuria, focal weakness, or paresthesias. He has noted some jerking. He has noted some dizziness. He has noted bilateral lower extremity edema and he tells me he was evaluated "by a doctor," which I believe is his vascular surgeon and they told him to use support hose. Further review of systems negative. PHYSICAL EXAMINATION GENERAL: Reveals a gentleman who is awake, alert, and oriented x4, looks amazingly good considering his blood gas. VITAL SIGNS: He is afebrile, pulse is 103, respiratory rate is 28, and blood pressure is 132/80. He is 5 feet 8 inches and 111 pounds. HEENT: Pupils are equal, round, and reactive to light. Sclerae anicteric. Head, atraumatic. Mucous membranes moist. He is edentulous with dentures. NECK: Supple. No supraclavicular or cervical adenopathy appreciated. Jugular venous pressure appears elevated. CHEST: Occasional wheeze. Prolonged expiratory phase. Decreased breath sounds. No consolidation. CARDIAC: Reveals regular rate and rhythm. No pathologic rub or gallop. He does have a soft murmur. ABDOMEN: Soft and nontender. No hepatomegaly or rebound. EXTREMITIES: Reveal no clubbing or cyanosis. He does have 1+ to 2+ pitting edema in his ankles and feet. NEUROLOGIC: Grossly intact. No focal motor or sensory deficits. However, when he sits up, he does have some twitching and myoclonus. SKIN: Basically warm and dry. Hands and fingers are somewhat cool. DIAGNOSTIC STUDIES IMAGING STUDIES: Chest x-ray with emphysema. No definite focal lobar infiltrates. He has bibasilar infiltrates. LABORATORY RESULTS: Arterial blood gas; currently pH is 7.19, pCO2 of 94, pO2 of 90, and his saturations are 100% on 4 L. I decreased it into 2 L. BUN is 22 and creatinine is 1.1. Troponin 0.05. BNP 1217. INR normal. White blood cell count 10.7, hemoglobin 10.7, and platelet count 190. Urinalysis not performed. Blood cultures performed and are pending. Sputum is pending. CARDIOVASCULAR STUDIES: EKG; rhythm strips appear to be sinus, incomplete right bundle-branch block. IMPRESSION 1. Acute on chronic hypercapnic hypoxemic respiratory failure. 2. Severe emphysema. 3. Non-small cell cancer of the lung, status post radiation. 4. Cardiomyopathy with decompensation, likely secondary to component of stress cardiomyopathy given the recent of his . 5. Coronary artery disease and medical problems listed above. PLAN Maximize lung function, but I think the primary issue is his decompensated congestive heart failure. Cardiology is following. He has agreed to intermittent noninvasive mask ventilation, we will try to reduce the pressures to improve tolerance. Hopefully, he can wear it at night with sleep as well. Ongoing diuresis. Continue antibiotics for now, we will check procalcitonin level. I have discussed with the patient Unit #: [id number] #: [id number] Patient: HARLEY MILLER resuscitation status and he clearly states that he does not want to be resuscitated. He states that if he becomes pulseless or requires a ventilator, he wants to pass away naturally. Thank you very much for allowing me to participate in the care of Mr. Miller. Dictated by... Jasen Lamar M.D. MAGALY/mata TD: 04/01/2017 03:08 JOB #: [id number] CC: Nely Flores M.D. CONSULTATION REPORT Page 1 of 1 X Jasen Lamar MD CONSULTATION REPORT
--- NOTE | ~2017-03-30 | EKG ---
PATIENT: HARLEY MILLER UNIT #: [id number] Ventricular Rate: 58 BPM Atrial Rate: 58 BPM P-R Interval: 126 ms QRS Duration: 104 ms Q-T Interval: 408 ms QTC Calculation(Bezet): 400 ms P [place]: 68 degrees Calculated R [place]: -85 degrees Calculated T [place]: 13 degrees Diagnosis Line: Sinus bradycardia with occasional Premature Diagnosis Line: ventricular complexes Diagnosis Line: Left anterior fascicular block Diagnosis Line: Anterolateral infarct (cited on or before Diagnosis Line: 04-MAR-2017) Diagnosis Line: Abnormal ECG Diagnosis Line: When compared with ECG of 04-MAR-2017 23:08, Diagnosis Line: Significant changes have occurred Diagnosis Line: Confirmed by DOREEN NGUYEN MD ([id number]) on 03/31/2017 Diagnosis Line: 5:47:07 AM INTERPRETING MD: WENDY RICE
[~2017-03-30 16:31] MED LIST changes: +CARVEDILOL6.25 MG; +IPRAT-ALBUT 0.5-3 ML; +LIPITOR; +REQUIP1 MG; +SYMBICORT
[2017-03-30 17:35] LABS: ARTERIAL BLD GAS O2 SATURATION 96.2 % (90.0-100.0); ARTERIAL BLOOD GAS CARBOXY HB 0.6 %sat (0.0-9.0); ARTERIAL BLOOD GAS HCO3 37.1 mmol/L; ARTERIAL BLOOD GAS MET HB 0.9 %sat (0.0-2.0); ARTERIAL BLOOD GAS pH 7.251 (7.350-7.450)
[2017-03-30 17:37] LABS: ARTERIAL BLOOD GAS ALLEN TEST NORMAL; ARTERIAL BLOOD GAS ART SITE RIGHT RADIAL; ARTERIAL BLOOD GAS PCO2 84.5 mmHg (35.0-45.0); ARTERIAL DRAW? YES
[2017-03-30 17:38] LABS: ARTERIAL BLOOD GAS DELIVERY NASAL CANNULA
[2017-03-30] MEDS ORDERED: SYMBICORT INH (17:42)
[2017-03-30] MEDS ORDERED: IPRAT-ALBUT 0.5-3 ML NEB (17:42)
[2017-03-30] MEDS ORDERED: ISOSORBIDE MONO30 M1 PO (17:42)
[2017-03-30] MEDS ORDERED: ASPIRIN81 M2 PO (17:43)
[2017-03-30] MEDS ORDERED: COREG6.25 MG PO (17:43)
[2017-03-30] MEDS ORDERED: PANTOPRAZOLE SO40 MG PO (17:43)
[2017-03-30] MEDS ORDERED: REQUIP1 MG PO (17:43)
[2017-03-30] MEDS ORDERED: ATORVASTATIN CA10 MG PO (17:44)
[2017-03-30] MEDS ORDERED: CLOPIDOGREL75 MG PO (17:44)
[2017-03-30] MEDS ORDERED: LASIX20 MG PO (17:45)
[2017-03-30 17:46] LABS: BASOPHIL% 0.4 % (0-2.5); EOSINOPHIL# 0.1 X10e3 (0-0.7); EOSINOPHIL% 1.5 % (0.0-7.0); HEMATOCRIT 30.5 % (38.0-50.0); HEMOGLOBIN 9.9 gm/dL (13.0-16.0); LYMPHOCYTE# 0.4 X10e3 (1.0-3.5); LYMPHOCYTE% 5.4 % (17.0-45.0); MEAN CELL VOLUME 101.3 FL (83-96); MEAN CORPUSCULAR HEMOGLOBIN 32.8 PG (28-34); MEAN CORPUSCULAR HGB CONC 32.3 g/dL (30-36); MEAN PLATELET VOLUME 8.2 FL (6.5-11.5); MONOCYTE# 0.6 X10e3 (0-1.0); MONOCYTE% 9.3 % (3.0-12.0); NEUTROPHIL# 5.7 X10e3 (1.5-7.1); NEUTROPHIL% 83.4 % (40-75); PLATELET COUNT 184 X10e3 (140-420); RED BLOOD COUNT 3.01 X10e (3.90-5.60); WHITE BLOOD COUNT 6.8 X10e3 (4.0-10.5)
[2017-03-30] MEDS ORDERED: PATIENT'S PHARMACY (17:46)
[2017-03-30 17:49] LABS: DIFF IND NO
[2017-03-30 17:59] LABS: PARTIAL THROMBOPLASTIN TIME 26.9 SECONDS (23.5-31.3); PROTHROMBIN TIME (PATIENT) 10.9 SECONDS (10.0-11.7)
[2017-03-30 18:16] LABS: ALBUMIN SERUM 2.8 g/dL (3.5-5.0); BILIRUBIN, DIRECT 0.1 mg/dL (0.0-0.2); BILIRUBIN,INDIRECT 0.2 mg/dL (0.0-0.9); BILIRUBIN,TOTAL 0.3 mg/dL (0.2-2.0); BUN/CREATININE RATIO 16.36; CALCIUM SERUM 8.6 mg/dL (8.4-10.2); CREATININE SERUM 1.1 mg/dL (0.6-1.4); GLOM FILT RATE Estimated 61.8 mL/min (>60); POTASSIUM 4.3 mmol/L (3.5-5.1); PROTEIN TOTAL SERUM 6.2 g/dL (6.0-8.3)
[2017-03-30 18:29] LABS: POC - TROPONIN <0.05 ng/mL (<=0.05)
[2017-03-30 22:07] LABS: ARTERIAL BLD GAS O2 SATURATION 94.8 % (90.0-100.0); ARTERIAL BLOOD GAS CARBOXY HB 0.7 %sat (0.0-9.0); ARTERIAL BLOOD GAS HCO3 36.5 mmol/L; ARTERIAL BLOOD GAS MET HB 0.8 %sat (0.0-2.0); ARTERIAL BLOOD GAS PO2 90.3 mmHg (80.0-100)
[2017-03-30 22:34] LABS: ARTERIAL BLOOD GAS pH 7.194 (7.350-7.450)
[2017-03-30 22:35] LABS: ARTERIAL BLOOD GAS ALLEN TEST NORMAL; ARTERIAL BLOOD GAS ART SITE LEFT RADIAL; ARTERIAL BLOOD GAS DELIVERY NASAL CANNULA; ARTERIAL BLOOD GAS PCO2 94.7 mmHg (35.0-45.0); ARTERIAL DRAW? YES
[2017-03-31 00:48] LABS: ARTERIAL BLOOD GAS CARBOXY HB 0.7 %sat (0.0-9.0); ARTERIAL BLOOD GAS HCO3 36.6 mmol/L; ARTERIAL BLOOD GAS pH 7.301 (7.350-7.450)
[2017-03-31 00:51] LABS: ARTERIAL BLOOD GAS ALLEN TEST NORMAL; ARTERIAL BLOOD GAS ART SITE LEFT RADIAL; ARTERIAL BLOOD GAS PCO2 74.2 mmHg (35.0-45.0); ARTERIAL DRAW? YES
[2017-03-31 01:05] LABS: CK TOTAL 25 IU/L (36-174)
[2017-03-31 05:54] LABS: BASOPHIL% 0.1 % (0-2.5); HEMATOCRIT 33.4 % (38.0-50.0); HEMOGLOBIN 10.7 gm/dL (13.0-16.0); LYMPHOCYTE# 0.2 X10e3 (1.0-3.5); MEAN CELL VOLUME 101.2 FL (83-96); MEAN CORPUSCULAR HEMOGLOBIN 32.3 PG (28-34); MEAN CORPUSCULAR HGB CONC 31.9 g/dL (30-36); MEAN PLATELET VOLUME 8.4 FL (6.5-11.5); MONOCYTE# 0.1 X10e3 (0-1.0); MONOCYTE% 1.1 % (3.0-12.0); NEUTROPHIL# 10.4 X10e3 (1.5-7.1); NEUTROPHIL% 96.8 % (40-75); PLATELET COUNT 190 X10e3 (140-420); RED CELL DISTRIBUTION WIDTH 13.7 % (11.0-15.5)
[2017-03-31 06:03] LABS: DIFF IND NO; WHITE BLOOD COUNT 10.7 X10e3 (4.0-10.5)
[2017-03-31 07:00] LABS: CALCIUM SERUM 8.6 mg/dL (8.4-10.2); CREATININE SERUM 1.1 mg/dL (0.6-1.4); GLOM FILT RATE Estimated 61.8 mL/min (>60); POTASSIUM 4.3 mmol/L (3.5-5.1)
[2017-03-31 15:55] LABS: ARTERIAL BLD GAS O2 SATURATION 97.4 % (90.0-100.0); ARTERIAL BLOOD GAS CARBOXY HB 0.8 %sat (0.0-9.0); ARTERIAL BLOOD GAS HCO3 41.4 mmol/L; ARTERIAL BLOOD GAS MET HB 1.1 %sat (0.0-2.0); ARTERIAL BLOOD GAS pH 7.262 (7.350-7.450)
[2017-03-31 15:58] LABS: ARTERIAL BLOOD GAS ALLEN TEST NORMAL; ARTERIAL BLOOD GAS ART SITE LEFT RADIAL; ARTERIAL BLOOD GAS DELIVERY NASAL CANNULA; ARTERIAL DRAW? YES
[2017-04-01 04:09] LABS: ARTERIAL BLD GAS O2 SATURATION 96.4 % (90.0-100.0); ARTERIAL BLOOD GAS CARBOXY HB 0.8 %sat (0.0-9.0); ARTERIAL BLOOD GAS HCO3 40.3 mmol/L; ARTERIAL BLOOD GAS MET HB 0.8 %sat (0.0-2.0); ARTERIAL BLOOD GAS PO2 96.5 mmHg (80.0-100); ARTERIAL BLOOD GAS pH 7.353 (7.350-7.450)
[2017-04-01 04:13] LABS: ARTERIAL BLOOD GAS ALLEN TEST NORMAL; ARTERIAL BLOOD GAS ART SITE LEFT RADIAL; ARTERIAL BLOOD GAS DELIVERY NASAL CANNULA; ARTERIAL BLOOD GAS PCO2 72.6 mmHg (35.0-45.0); ARTERIAL DRAW? YES
[2017-04-01 04:48] LABS: HEMATOCRIT 30.2 % (38.0-50.0); HEMOGLOBIN 9.5 gm/dL (13.0-16.0); LYMPHOCYTE# 0.3 X10e3 (1.0-3.5); LYMPHOCYTE% 2.1 % (17.0-45.0); MEAN CELL VOLUME 101.1 FL (83-96); MEAN CORPUSCULAR HEMOGLOBIN 31.9 PG (28-34); MEAN CORPUSCULAR HGB CONC 31.6 g/dL (30-36); MEAN PLATELET VOLUME 8.5 FL (6.5-11.5); MONOCYTE# 0.5 X10e3 (0-1.0); MONOCYTE% 3.6 % (3.0-12.0); NEUTROPHIL% 94.3 % (40-75); PLATELET COUNT 185 X10e3 (140-420); RED BLOOD COUNT 2.98 X10e (3.90-5.60); RED CELL DISTRIBUTION WIDTH 13.5 % (11.0-15.5); WHITE BLOOD COUNT 12.7 X10e3 (4.0-10.5)
[2017-04-01 04:49] LABS: DIFF IND NO
[2017-04-01 05:25] LABS: BUN/CREATININE RATIO 25.38; CALCIUM SERUM 8.4 mg/dL (8.4-10.2); CREATININE SERUM 1.3 mg/dL (0.6-1.4); GLOM FILT RATE Estimated 50.5 mL/min (>60); MAGNESIUM 2.2 mg/dL (1.6-3.0); PHOSPHOROUS 3.4 mg/dL (2.5-4.6); POTASSIUM 4.4 mmol/L (3.5-5.1)
[2017-04-01 11:58] LABS: CK TOTAL 21 IU/L (36-174)
[2017-04-02 07:01] LABS: BASOPHIL% 0.3 % (0-2.5); HEMATOCRIT 31.2 % (38.0-50.0); LYMPHOCYTE# 0.8 X10e3 (1.0-3.5); LYMPHOCYTE% 5.4 % (17.0-45.0); MEAN CELL VOLUME 98.8 FL (83-96); MEAN CORPUSCULAR HEMOGLOBIN 31.8 PG (28-34); MEAN CORPUSCULAR HGB CONC 32.2 g/dL (30-36); MEAN PLATELET VOLUME 8.5 FL (6.5-11.5); MONOCYTE# 1.1 X10e3 (0-1.0); NEUTROPHIL# 12.3 X10e3 (1.5-7.1); NEUTROPHIL% 86.3 % (40-75); PLATELET COUNT 188 X10e3 (140-420); RED BLOOD COUNT 3.16 X10e (3.90-5.60); RED CELL DISTRIBUTION WIDTH 13.4 % (11.0-15.5); WHITE BLOOD COUNT 14.2 X10e3 (4.0-10.5)
[2017-04-02 07:08] LABS: DIFF IND NO
[2017-04-02 07:44] LABS: BUN/CREATININE RATIO 32.5; CALCIUM SERUM 8.6 mg/dL (8.4-10.2); CREATININE SERUM 1.2 mg/dL (0.6-1.4); GLOM FILT RATE Estimated 55.6 mL/min (>60); PHOSPHOROUS 1.6 mg/dL (2.5-4.6); POTASSIUM 4.4 mmol/L (3.5-5.1)
[2017-04-03 06:21] LABS: HEMATOCRIT 30.2 % (38.0-50.0); MEAN CELL VOLUME 97.6 FL (83-96); MEAN CORPUSCULAR HEMOGLOBIN 32.5 PG (28-34); MEAN CORPUSCULAR HGB CONC 33.3 g/dL (30-36); MEAN PLATELET VOLUME 8.8 FL (6.5-11.5); RED BLOOD COUNT 3.09 X10e (3.90-5.60); RED CELL DISTRIBUTION WIDTH 13.4 % (11.0-15.5); WHITE BLOOD COUNT 10.1 X10e3 (4.0-10.5)
[2017-04-03 06:42] LABS: CALCIUM SERUM 8.6 mg/dL (8.4-10.2); CREATININE SERUM 1.2 mg/dL (0.6-1.4); GLOM FILT RATE Estimated 55.6 mL/min (>60); POTASSIUM 3.8 mmol/L (3.5-5.1)
== END 2017-04-04 22:00 | DRG 291 ==
LOC: CED 16:31 → CICCU3 21:00 → CEDOF 21:00 → CICCU3 21:15 → CEDOF 21:15 → CED 21:15 → CICCU3 23:35 → CEDOF 23:35 → CICCU3 23:35 → C3A PCU 04-01 15:55 → C2A 04-04 05:27
PROVIDERS: Emergency Medicine; Family Medicine; Internal Medicine
DX: I11.0 Hypertensive heart disease with heart failure (principal); J96.21 Acute and chronic respiratory failure with hypoxia; Z99.81 Dependence on supplemental oxygen; J96.22 Acute and chronic respiratory failure with hypercapnia; Z68.1 Body mass index [BMI] 19.9 or less, adult; I50.43 Acute on chronic combined systolic (congestive) and diastolic (congestive) heart failure; J44.9 Chronic obstructive pulmonary disease, unspecified; I25.5 Ischemic cardiomyopathy; I73.9 Peripheral vascular disease, unspecified; Z85.118 Personal history of other malignant neoplasm of bronchus and lung; Z86.73 Personal history of transient ischemic attack (TIA), and cerebral infarction without residual deficits; E78.5 Hyperlipidemia, unspecified; K21.9 Gastro-esophageal reflux disease without esophagitis; F41.9 Anxiety disorder, unspecified; Z90.49 Acquired absence of other specified parts of digestive tract; Z88.0 Allergy status to penicillin; Z87.891 Personal history of nicotine dependence; Z95.1 Presence of aortocoronary bypass graft; Z95.5 Presence of coronary angioplasty implant and graft; I25.119 Atherosclerotic heart disease of native coronary artery with unspecified angina pectoris; I25.2 Old myocardial infarction; R62.7 Adult failure to thrive; G31.84 Mild cognitive impairment of uncertain or unknown etiology
CPT/HCPCS: 36415; 36600; 71010; 71020; 78452; 80048; 80076; 82308; 82550; 82553; 82803; 83605; 83735; 83880; 84100; 84484; 85025; 85027; 85610; 85730; 87040; 87070; 87205; 93005; 93017; 93970; 94640; 94660; 94760; 97110; 97116; 97163; 97166; 97530; 97535; 99285; A9500; G8978-GP; G8979-GP; G8980-GP; G8987-GO; G8988-GO; J0692; J1650; J1940; J2405; J2785; J2920; J2930; J3260

== ENCOUNTER 2017-05-07 11:57 | Inpatient (IN) | payer OTHER, MEDICARE, BC ==
[~2017-05-07] VITALS: Ht 171.7 cm; Wt 54.0 kg
--- NOTE | ~2017-05-07 | CO ---
Unit #: [id number] #: [id number] Patient: HARLEY MILLER [id number] [place], [place] [address] [id number] MR#: [id number] NAME: HARLEY MILLER. ROOM: 317 Age: 81 Sex: M Admission Date: 05/07/2017 : 1935 Attending Physician: Krystina Oropeza M.D. Primary Care Physician: Sylvia Negron M.D. Consultation Date: 05/08/2017 CONSULTATION REPORT REASON FOR CONSULTATION Respiratory failure. HISTORY OF PRESENT ILLNESS This is an 81-year-old gentleman well known to me from office and previous hospitalizations who has severe COPD, chronic respiratory failure, intermittent use of oxygen, history of lung cancer, status post radiation who was recently at rehab following hospitalization here. He was discharged from rehab, he estimates, about one week ago. He tells me in rehab he was on 40 mg of prednisone and he was discharged on 5 mg of prednisone. Then, apparently, the home nurse increased him to 10 mg of prednisone a day, but stopped his inhaled controlling agents. He was on nebulized bronchodilators only. He was on oxygen, but was using it only intermittently. The day prior to admission, he noticed increased shortness of breath, increased lower extremity edema, and increased need to wear his oxygen. He felt congested, but no definite sputum production. There was no fever. Possibly some wheezing, but he was vague on that and no chest pain. There has been no hemoptysis. PAST MEDICAL HISTORY Remarkable for: 1. COPD and severe emphysema. 2. Chronic respiratory failure wearing oxygen primarily at night prior to his recent illnesses. 3. 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 4. Cardiomyopathy with an EF of 35%. 5. Peripheral vascular disease. 6. Hypertension. 7. Hyperlipidemia. 8. Anxiety. 9. Coronary artery disease. MEDICATIONS At home according to the med rec sheet: 1. Imdur. 2. DuoNeb. 3. Protonix. 4. Coreg. 5. Aspirin. 6. Plavix. 7. Lasix. 8. Prednisone 10 mg a day per his history. 9. Tylenol p.r.n. Unit #: [id number] #: [id number] Patient: HARLEY MILLER ALLERGIES Penicillin with hives. SOCIAL HISTORY Reformed tobacco user. He lives at home by himself. FAMILY HISTORY No familial lung disease. REVIEW OF SYSTEMS No trouble swallowing such as choking or coughing with meals. No abdominal pain. No hematochezia, hematuria, dysuria, focal weakness, or paresthesias. He has noticed increased lower extremity edema. No fever, chills, or headache. No chest pain or palpitations. Further review of systems as above. DIAGNOSTIC STUDIES IMAGING: Chest x-ray with emphysema. He does have some changes in his right lower lobe and, quite frankly, they were present previously although may be somewhat more prominent. CARDIOVASCULAR: EKG reveals a nonspecific intraventricular conduction delay. There is some elevation, either J point elevation, does not appear to be definite ST elevation. It has not been officially read yet. LABORATORY: Arterial blood gas: pH of 7.27, pCO2 of 82, and pO2 of 181. BUN 30 and creatinine 1.1. BNP 729. Procalcitonin less than 0.05. Troponins have been negative. White blood cell count was 13 and now 8.1, hemoglobin 10.5, and platelet count 222. Legionella and Strep. pneumococcal antigens are negative. Blood cultures performed and are pending. Sputum has been asked for, but is pending receipt. IMPRESSION 1. Exacerbation of chronic obstructive pulmonary disease. 2. Acute on chronic respiratory failure, hypercapnic hypoxemic. 3. Abnormal chest x-ray, at this point doubt pneumonia. 4. Cardiomyopathy with an EF of 35% with some evidence of decompensation. 5. Abnormal EKG. 6. Chronic respiratory failure with inconsistent use of oxygen at home. 7. Lung cancer, status post radiation therapy. 8. Peripheral vascular disease, hypertension, hyperlipidemia, coronary artery disease, etc. PLAN IV steroids. Antibiotics for bronchitis. At this point, no definite evidence of pneumonia with his procalcitonin level being low, history not consistent with pneumonia, and chest x-ray with only borderline changes. Oxygen to maintain adequate saturations and he will need oxygenation needs checked at discharge. I think he would definitely benefit from some type of controlling agents. I would suggest not having these discontinued by a home health nurse when he is discharged. He tells me he feels that the Dulera that he received here is beneficial. He is currently refusing BiPAP, he is followed by hospice, and is DNR status so we will discontinue BiPAP per his request. I will diuretic therapy and monitor renal function closely. Long-term prognosis is guarded. Thank you very much for allowing me to participate in the care of Mr. Miller. Unit #: [id number] #: [id number] Patient: HARLEY MILLER Dictated by... Nely Caicedo/jj TD: 05/09/2017 10:07 JOB #: [id number] CONSULTATION REPORT Page 1 of 1 X Jasen Lamar MD X CONSULTATION REPORT
--- NOTE | ~2017-05-07 | EKG ---
PATIENT: HARLEY MILLER UNIT #: [id number] Ventricular Rate: 74 BPM Atrial Rate: 74 BPM P-R Interval: 146 ms QRS Duration: 148 ms Q-T Interval: 402 ms QTC Calculation(Bezet): 446 ms P [place]: 83 degrees Calculated R [place]: -85 degrees Calculated T [place]: 103 degrees Diagnosis Line: Normal sinus rhythm Diagnosis Line: Left axis deviation Diagnosis Line: Non-specific intra-ventricular conduction block Diagnosis Line: Lateral infarct (cited on or before 07-MAY-2017) Diagnosis Line: Abnormal ECG Diagnosis Line: When compared with ECG of 31-MAR-2017 06:32, Diagnosis Line: Non-specific intra-ventricular conduction block Diagnosis Line: has replaced Incomplete right bundle branch block Diagnosis Line: Questionable change in initial forces of Anterior Diagnosis Line: leads Diagnosis Line: Confirmed by DOREEN NGUYEN MD ([id number]) on 05/09/2017 Diagnosis Line: 8:20:54 AM INTERPRETING MD: WENDY RICE
--- NOTE | ~2017-05-07 | A ---
[facility] Nutrition Therapy DATE: 05/08/17 Patient: HARLEY MILLER Physician: JYOTI Address: [address] Room/Bed: [address] [place] [address], Zip: [place] [id number] Admit Date: 05/07/17 Date of : [birth year] Height: 5 7.59 Weight: 119 53.97 NUTRITIONAL ASSESSMENT: REASON: Low BMI Admitting dx: 81 y/o male admitted with SOA - CHF/COPD exacerbation PMH: COPD, CAD, HLD, HTN, GERD, PVD, CHF, chronic anemia, lung cancer s/p radiation Anthropometrics: Ht: 68", Wt: 118 lbs, BMI: 18 (underweight) Labs: glucose 126, BUN 30, lipid panel WNL 09/2016 Meds: PPI, solu-medrol I/O & Bowel function: LBM unknown, pt denies N/V Skin Integrity: redness coccyx, scalp abrasion, no edema Estimated Nutrition Needs: Increased due to underweight status, questionable weight loss Assessment: Chart reviewed, events noted. See admitting dx and PMH as stated above. Pt refusing to wear Bipap at this time. He is clinically underweight. RD previously assessed on 04/30/17 during most recent admission- note reviewed. Pt's weight stable since that admission, however he reports his UBW is ~120 lbs and he got down to 110 lbs recently, then back up to 118 lbs since rehab. Scored 0 points on the malnutrition risk screen. Of note, his recently. He is currently on a healthy heart diet requesting breakfast. Aidchioma states she has already ordered him breakfast and informed RD pt needs DOCUMENT SPECIALIST eval however unsure of when this will take place. Pt amenable to trying Ensure- will order. RD brought pt Ensure from the kitchen and observed him eating some of his breakfast. He didn't appear to have any overt s/s of chewing/swallowing difficulties and reported a good appetite. See recs below, will follow hospital course. Dx: Underweight r/t advancing age, variable PO intakes AEB BMI 18. Intervention: 2g sodium diet, Ensure compact BID Monitoring, Evaluation and Goals: 1. PO intake > 50% of meals/supps with no chewing/swallowing difficulties. 2. Gradual weight gain towards a healthy BMI range. Monitor: per protocol, criteria to determine if above goals met [facility] Nutrition Therapy DATE: 05/08/17 Patient: HARLEY MILLER Physician: JYOTI Address: [address] Room/Bed: [address] [place] [address], Zip: [place] [address] Admit Date: 05/07/17 Date of : [birth year] Height: 5 7.59 Weight: 119 53.97 Recommendations: 1. Please change diet to 2g sodium so the patient is not restricted on fat or cholesterol intake. Assist with meals as needed and encourage oral intake. 2. RD ordering vanilla Ensure compact BID to provide extra oral kcals/protein to promote weight gain. Note this is a lower volume supplement providing 118 ml per bottle. Fluids per MD. 3. Aide states patient needs DOCUMENT SPECIALIST eval. Please evaluate for safety of PO intake if appropriate. RD will follow Mild nutrition risk Respectfully, Nuzhat Landa RD, LD [facility] cc: client file
--- NOTE | ~2017-05-07 | HP ---
Unit #: [id number] #: [id number] Patient: HARLEY MILLER [id number] [facility] [place] [facility]. [place], [place] [address] [id number] MR#: [id number] NAME: HARLEY MILLER. ROOM: Age: 81 Sex: M Admission Date: 05/07/2017 : 1935 Attending Physician: Ronal Valle M.D. Primary Care Physician: Sylvia Negron M.D. HISTORY AND PHYSICAL CHIEF COMPLAINT Short of air. HISTORY OF PRESENT ILLNESS The patient is an 81-year-old male with a past medical history of chronic respiratory failure, COPD, coronary artery disease, CHF, peripheral vascular disease, hypertension, and lung cancer, who presented to the emergency department for evaluation of the above. History is obtained from chart review and discussion with ER staff, as well as from the patient. Apparently, the patient has had worsening shortness of breath over the past 24-48 hours. He has had increasing shortness of breath and intermittently productive cough. He denies any fever and no chest pain. He was apparently without his home oxygen last night. He denies vomiting or diarrhea. In the emergency department, initial oxygen saturation was 100% on four liters. An arterial blood gas was done and showed a pH of 7.27, PCO2 of 82.8, and PO2 of 211 on four liters. He is currently on BiPAP. Chest x-ray shows possible right lower lobe infiltrate. White blood cell count is 13.2. The patient apparently refused antibiotics. He initially refused BiPAP. He was given 0.5 mg of Ativan just prior to my evaluation. He is currently somewhat drowsy and unable to provide much additional historical information. He is being admitted to [facility] for evaluation and further treatment. PAST MEDICAL HISTORY 1. Admission to [facility] March 30 through April 04, 2017, for acute on chronic respiratory failure. Per Dr. Lamar's consultation note dated March 31, 2017, the patient is a Do Not Resuscitate. 2. Chronic obstructive pulmonary disease followed by Dr. Lamar. 3. Chronic respiratory failure on four liters of oxygen per nasal cannula. 4. Coronary artery disease, status post coronary artery bypass grafting and stent placement. 5. Congestive heart failure. Per Cardiology consultation note dated March 31, 2017, the patient had an echocardiogram December 09, 2016, at [facility], with an ejection fraction of 35% to 40%. 6. Peripheral vascular disease, status post carotid endarterectomy. 7. Hypertension. 8. Hyperlipidemia. 9. History of lung cancer, status post radiation treatment. 10. Chronic anemia. Unit #: [id number] #: [id number] Patient: HARLEY MILLER 11. Gastroesophageal reflux disease. 12. Anxiety. PAST SURGICAL HISTORY 1. Coronary artery bypass grafting. 2. Cholecystectomy. 3. Right carotid endarterectomy. 4. Left finger incision and drainage. SOCIAL HISTORY The patient is a former smoker. He quit in 1999. He ambulates with a walker. His code status is a Do Not Resuscitate per Pulmonary consultation note in March 2017. The patient is a somewhat limited historian. I attempted to call the patient's daughter, Iris Perez, to confirm code status but was unable to reach her. Will discuss with the patient and/or family when they are available. FAMILY HISTORY Notable for his brother having sudden cardiac in his 60s. ALLERGIES Penicillin. HOME MEDICATIONS 1. Isosorbide mononitrate 30 mg daily. 2. DuoNebs q.4 hours. 3. Pantoprazole 40 mg daily. 4. Coreg 6.25 mg daily. 5. Aspirin 81 mg daily. 6. Plavix 75 mg daily. 7. Lasix 20 mg daily. 8. Nitroglycerin 0.4 mg q.5 minutes p.r.n. 9. Prednisone 5 mg daily. 10. Tylenol 325 mg q.4 hours p.r.n. REVIEW OF SYSTEMS A complete review of systems is somewhat limited due to the patient's altered mental status. PHYSICAL EXAMINATION VITAL SIGNS: Temperature is 97.9, pulse 74, respirations 17, blood pressure 103/51, and oxygen saturation 100% on 4 liters. GENERAL: Patient is a male who is lethargic but wakes to physical stimuli. HEENT: Head is atraumatic. Mucous membranes are moist. NECK: Supple. Trachea is midline. CARDIOVASCULAR: Regular rate and rhythm. LUNGS: Inspiratory and expiratory crackles and wheezes. Breathing is mildly labored. The patient is currently on BiPAP. ABDOMEN: Soft and nontender with bowel sounds present in all four quadrants. EXTREMITIES: With 1+ pitting edema. NEUROLOGIC: Patient is lethargic. He wakes to physical stimuli. He is moving all extremities. He follows commands. He is not answering questions other than shaking his head yes or no. PSYCHIATRIC: Difficult to assess. He is cooperative but was refusing antibiotics, as well as BiPAP in the emergency department. SKIN: Skin of examined areas is warm and dry. Unit #: [id number] #: [id number] Patient: HARLEY MILLER DIAGNOSTIC STUDIES LABORATORY: Troponin is less than 0.05. Arterial blood gas shows a pH of 7.27, PCO2 of 82.8, and PO2 of 211 on 4 liters. Complete blood count notable for white blood cell count of 13.2 and hemoglobin and hematocrit 10.3 and 32.1, respectively. Lactic acid is 0.9. Comprehensive metabolic panel notable for a CO2 of 36, glucose 119, BUN and creatinine 30 and 1.3, respectively, alkaline phosphatase 96, and albumin 3.1. IMAGING: Chest x-ray shows possible right lower lobe infiltrate. CARDIOLOGY: EKG shows normal sinus rhythm with a rate of 74 beats per minute. ASSESSMENT The patient is an 81-year-old male with: 1. Acute on chronic respiratory failure, hypoxic and hypercapnic. The patient is currently on BiPAP. 2. Healthcare-associated pneumonia. The patient initially refused vancomycin and Zosyn. 3. Leukocytosis with an initial white blood cell count of 13.2. 4. Chronic obstructive pulmonary disease exacerbation. The patient received 125 mg of Solu-Medrol in the emergency department. 5. Coronary artery disease, status post coronary artery bypass grafting. 6. Congestive heart failure with ejection fraction as noted above. The patient received 20 mg of Lasix in the emergency department. 7. Peripheral vascular disease, status post carotid endarterectomy. 8. Hypertension. 9. Hyperlipidemia. 10. History of lung cancer, status post radiation treatment. 11. Gastroesophageal reflux disease. 12. Anxiety. PLAN 1. Admit to ICU. 2. N.p.o. except medications. 3. Consult Dr. Lamar regarding acute on chronic respiratory failure. 4. Blood cultures x2. 5. Sputum culture and sensitivity. 6. Procalcitonin level. 7. Streptococcal and legionella urine antigens. 8. Vancomycin, tobramycin, and aztreonam IV for healthcare-associated pneumonia pending further workup. 9. DuoNebs q.4 hours. 10. Repeat ABG later this afternoon. 11. Clarify code status. 12. Serial cardiac enzymes. 13. Check BNP. 14. Monitor blood pressure closely. 15. P.r.n. Tylenol. 16. Solu-Medrol 80 mg IV q.12 hours. 17. Neuro check. 18. Repeat labs in the morning. 19. SCDs for DVT prophylaxis. 20. Protonix for GI prophylaxis since the patient will be on Solu-Medrol. Thirty-one (31) minutes critical care time spent in the care of this patient (3:45-4:16 p.m.). Unit #: [id number] #: [id number] Patient: HARLEY MILLER Dictated by Nely Vazquez/anjel TD: 05/07/2017 16:35 JOB #: [id number] HISTORY AND PHYSICAL Page 1 of 1 X Cindy Metzger MD X HISTORY AND PHYSICAL
--- NOTE | ~2017-05-07 | CR72 ---
[facility] A Service of [facility] RADIOLOGY TEXT RESULTS PATIENT: HARLEY MILLER LOCATION: [facility] : [birth year] UNIT #: [id number] AGE: [address]: Krystina Oropeza MD SEX: M ORDER DR: [id number] [facility] [address] [place], [place] [address] [id number] MR#: [id number] Acc #: [id number] NAME: HARLEY MILLER. : 1935 SEX: M STUDY DATE/TIME: 05/07/2017 13:45 UNIT: MAUREEN ROOM: STUDY DESCRIPTION: CR Chest Single View Portable Attending Physician: Ronal Valle M.D. Ordering Physician: Roanl Valle M.D. Primary Care Physician: Sylvia Negron M.D. MEDICAL IMAGING REPORT This report is preliminary unless electronic signature is present EXAM Portable chest, 05/07/2017. HISTORY Short of air since last night. COMPARISON 04/02/2017 FINDINGS A portable view of the chest was obtained. The lungs are slightly hyperinflated. There is minimal atelectasis or infiltrate in the right base. Sternotomy wires are present. The heart size is normal. IMPRESSION 1. There is some mild increased density in the right base medially that could represent infiltrate or atelectasis. 2. The lungs are hyperinflated. 3. Otherwise, the study is normal. Dictated by... Yosvany Gudino M.D. THIS IS AN ELECTRONICALLY VERIFIED REPORT Yosvany Gudino M.D. at 05/08/2017 8:16 AM ANA/candis TD: 05/07/2017 16:30 JOB #: [id number] [facility] A Service [facility] RADIOLOGY TEXT RESULTS PATIENT: HARLEY MILLER LOCATION: [facility] 574-01 : [birth year] UNIT #: [id number] AGE: [address]: Krystina Oropeza MD SEX: M ORDER DR: MEDICAL IMAGING REPORT Page 1 of 1 COPY
--- NOTE | ~2017-05-07 | EKG ---
PATIENT: HARLEY MILLER UNIT #: [id number] Ventricular Rate: 83 BPM Atrial Rate: 83 BPM P-R Interval: 144 ms QRS Duration: 146 ms Q-T Interval: 406 ms QTC Calculation(Bezet): 477 ms Calculated R Swifton: 177 degrees Calculated T Swifton: -41 degrees Diagnosis Line: Normal sinus rhythm Diagnosis Line: Left ventricular hypertrophy with QRS widening Diagnosis Line: Inferior infarct , age undetermined Diagnosis Line: Right axis deviation Diagnosis Line: Abnormal ECG Diagnosis Line: When compared with ECG of 07-MAY-2017 12:38, Diagnosis Line: Right axis deviation is now Present Diagnosis Line: Criteria for Lateral infarct are no longer Present Diagnosis Line: Inferior infarct is now Present Diagnosis Line: T wave inversion now evident in Inferior leads Diagnosis Line: Confirmed by DOREEN NGUYEN MD ([id number]) on 05/12/2017 Diagnosis Line: 10:45:46 PM INTERPRETING MD: WENDY RICE
--- NOTE | ~2017-05-07 | HP ---
Unit #: [id number] #: [id number] Patient: HARLEY MILLER [id number] [facility] [address]. [place], [place] [address] [id number] I MR#: [id number] NAME: HARLEY MILLRE. ROOM: 56512 Age: 81 Sex: M Admission Date: 05/07/2017 : 1935 Attending Physician: Cindy Metzger M.D. Primary Care Physician: Sylvia Negron M.D. HISTORY AND PHYSICAL REVISED REPORT See Addenda CHIEF COMPLAINT Short of air. HISTORY OF PRESENT ILLNESS The patient is an 81-year-old male with a past medical history of chronic respiratory failure, COPD, coronary artery disease, CHF, peripheral vascular disease, hypertension, and lung cancer, who presented to the emergency department for evaluation of the above. History is obtained from chart review and discussion with ER staff, as well as from the patient. Apparently, the patient has had worsening shortness of breath over the past 24-48 hours. He has had increasing shortness of breath and intermittently productive cough. He denies any fever and no chest pain. He was apparently without his home oxygen last night. He denies vomiting or diarrhea. In the emergency department, initial oxygen saturation was 100% on four liters. An arterial blood gas was done and showed a pH of 7.27, PCO2 of 82.8, and PO2 of 211 on four liters. He is currently on BiPAP. Chest x-ray shows possible right lower lobe infiltrate. White blood cell count is 13.2. The patient apparently refused antibiotics. He initially refused BiPAP. He was given 0.5 mg of Ativan just prior to my evaluation. He is currently somewhat drowsy and unable to provide much additional historical information. He is being admitted to [facility] for evaluation and further treatment. PAST MEDICAL HISTORY 1. Admission to [facility] March 30 through April 04, 2017, for acute on chronic respiratory failure. Per Dr. Lamar's consultation note dated March 31, 2017, the patient is a Do Not Resuscitate. 2. Chronic obstructive pulmonary disease followed by Dr. Lamar. 3. Chronic respiratory failure on four liters of oxygen per nasal cannula. 4. Coronary artery disease, status post coronary artery bypass grafting and stent placement. 5. Congestive heart failure. Per Cardiology consultation note dated March 31, 2017, the patient had an echocardiogram December 09, 2016, at [place], with an ejection fraction of 35% to 40%. 6. Peripheral vascular disease, status post carotid endarterectomy. 7. Hypertension. 8. Hyperlipidemia. Unit #: [id number] #: [id number] Patient: HARLEY MILLER 9. History of lung cancer, status post radiation treatment. 10. Chronic anemia. 11. Gastroesophageal reflux disease. 12. Anxiety. PAST SURGICAL HISTORY 1. Coronary artery bypass grafting. 2. Cholecystectomy. 3. Right carotid endarterectomy. 4. Left finger incision and drainage. SOCIAL HISTORY The patient is a former smoker. He quit in 1999. He ambulates with a walker. His code status is a Do Not Resuscitate per Pulmonary consultation note in March 2017. The patient is a somewhat limited historian. I attempted to call the patient's daughter, Iris Perez, to confirm code status but was unable to reach her. Will discuss with the patient and/or family when they are available. FAMILY HISTORY Notable for his brother having sudden cardiac in his 60s. ALLERGIES Penicillin. HOME MEDICATIONS 1. Isosorbide mononitrate 30 mg daily. 2. DuoNebs q.4 hours. 3. Pantoprazole 40 mg daily. 4. Coreg 6.25 mg daily. 5. Aspirin 81 mg daily. 6. Plavix 75 mg daily. 7. Lasix 20 mg daily. 8. Nitroglycerin 0.4 mg q.5 minutes p.r.n. 9. Prednisone 5 mg daily. 10. Tylenol 325 mg q.4 hours p.r.n. REVIEW OF SYSTEMS A complete review of systems is somewhat limited due to the patient's altered mental status. PHYSICAL EXAMINATION VITAL SIGNS: Temperature is 97.9, pulse 74, respirations 17, blood pressure 103/51, and oxygen saturation 100% on 4 liters. GENERAL: Patient is a male who is lethargic but wakes to physical stimuli. HEENT: Head is atraumatic. Mucous membranes are moist. NECK: Supple. Trachea is midline. CARDIOVASCULAR: Regular rate and rhythm. LUNGS: Inspiratory and expiratory crackles and wheezes. Breathing is mildly labored. The patient is currently on BiPAP. ABDOMEN: Soft and nontender with bowel sounds present in all four quadrants. EXTREMITIES: With 1+ pitting edema. NEUROLOGIC: Patient is lethargic. He wakes to physical stimuli. He is moving all extremities. He follows commands. He is not answering questions other than shaking his head yes or no. PSYCHIATRIC: Difficult to assess. He is cooperative but was refusing Unit #: [id number] #: [id number] Patient: HARLEY MILLER antibiotics, as well as BiPAP in the emergency department. SKIN: Skin of examined areas is warm and dry. DIAGNOSTIC STUDIES LABORATORY: Troponin is less than 0.05. Arterial blood gas shows a pH of 7.27, PCO2 of 82.8, and PO2 of 211 on 4 liters. Complete blood count notable for white blood cell count of 13.2 and hemoglobin and hematocrit 10.3 and 32.1, respectively. Lactic acid is 0.9. Comprehensive metabolic panel notable for a CO2 of 36, glucose 119, BUN and creatinine 30 and 1.3, respectively, alkaline phosphatase 96, and albumin 3.1. IMAGING: Chest x-ray shows possible right lower lobe infiltrate. CARDIOLOGY: EKG shows normal sinus rhythm with a rate of 74 beats per minute. ASSESSMENT The patient is an 81-year-old male with: 1. Acute on chronic respiratory failure, hypoxic and hypercapnic. The patient is currently on BiPAP. 2. Healthcare-associated pneumonia. The patient initially refused vancomycin and Zosyn. 3. Leukocytosis with an initial white blood cell count of 13.2. 4. Chronic obstructive pulmonary disease exacerbation. The patient received 125 mg of Solu-Medrol in the emergency department. 5. Coronary artery disease, status post coronary artery bypass grafting. 6. Congestive heart failure with ejection fraction as noted above. The patient received 20 mg of Lasix in the emergency department. 7. Peripheral vascular disease, status post carotid endarterectomy. 8. Hypertension. 9. Hyperlipidemia. 10. History of lung cancer, status post radiation treatment. 11. Gastroesophageal reflux disease. 12. Anxiety. PLAN 1. Admit to ICU. 2. N.p.o. except medications. 3. Consult Dr. Lamar regarding acute on chronic respiratory failure. 4. Blood cultures x2. 5. Sputum culture and sensitivity. 6. Procalcitonin level. 7. Streptococcal and legionella urine antigens. 8. Vancomycin, tobramycin, and aztreonam IV for healthcare-associated pneumonia pending further workup. 9. DuoNebs q.4 hours. 10. Repeat ABG later this afternoon. 11. Clarify code status. 12. Serial cardiac enzymes. 13. Check BNP. 14. Monitor blood pressure closely. 15. P.r.n. Tylenol. 16. Solu-Medrol 80 mg IV q.12 hours. 17. Neuro check. 18. Repeat labs in the morning. 19. SCDs for DVT prophylaxis. 20. Protonix for GI prophylaxis since the patient will be on Solu-Medrol. Unit #: [id number] #: [id number] Patient: HARLEY MILLER Thirty-one (31) minutes critical care time spent in the care of this patient (3:45-4:16 p.m.). Dictated by... Cindy Metzger M.D. AW/am TD: 05/07/2017 16:35 JOB #: [id number] ADDENDUM I was able to reassess the patient when he was more awake. He is currently awake, alert, and oriented x3. He actually states that he is a Full Code. However, currently he is refusing BiPAP. He is on four liters. I am going to repeat an ABG in 30 minutes. Dictated by... Cindy Metzger M.D. / TD: 05/07/2017 17:47 JOB #: [id number] CC: Sovera/invision Please Delete ADDENDUM Previously, I spoke with the patient, and he stated he was a Full Code. Now, family has arrived and informed me that the patient is currently in hospice and is a Do Not Resuscitate. I have downgraded him to intermediate level. I am encouraging BiPAP however, because his blood gas on four liters of oxygen is showing pH of 7.276, PCO2 of 82.8, and PO2 of 181. Dictated by Nely Vazquez/am TD: 05/07/2017 20:29 JOB #: [id number] CC: Sovera/invision Please Delete HISTORY AND PHYSICAL Page 1 of 1 X Cindy Metzger MD HISTORY AND PHYSICAL
--- NOTE | ~2017-05-07 | HP ---
Unit #: [id number] #: [id number] Patient: HARLEY MILLER [id number] [facility] [address]. [place], [place] [address] [id number] MR#: [id number] NAME: HARLEY MILLER. ROOM: 18174 Age: 81 Sex: M Admission Date: 05/07/2017 : 1935 Attending Physician: Cindy Metzger M.D. Primary Care Physician: Sylvia Negron M.D. HISTORY AND PHYSICAL REVISED REPORT See Addendum CHIEF COMPLAINT Short of air. HISTORY OF PRESENT ILLNESS The patient is an 81-year-old male with a past medical history of chronic respiratory failure, COPD, coronary artery disease, CHF, peripheral vascular disease, hypertension, and lung cancer, who presented to the emergency department for evaluation of the above. History is obtained from chart review and discussion with ER staff, as well as from the patient. Apparently, the patient has had worsening shortness of breath over the past 24-48 hours. He has had increasing shortness of breath and intermittently productive cough. He denies any fever and no chest pain. He was apparently without his home oxygen last night. He denies vomiting or diarrhea. In the emergency department, initial oxygen saturation was 100% on four liters. An arterial blood gas was done and showed a pH of 7.27, PCO2 of 82.8, and PO2 of 211 on four liters. He is currently on BiPAP. Chest x-ray shows possible right lower lobe infiltrate. White blood cell count is 13.2. The patient apparently refused antibiotics. He initially refused BiPAP. He was given 0.5 mg of Ativan just prior to my evaluation. He is currently somewhat drowsy and unable to provide much additional historical information. He is being admitted to [facility] for evaluation and further treatment. PAST MEDICAL HISTORY 1. Admission to [facility] March 30 through April 04, 2017, for acute on chronic respiratory failure. Per Dr. Lamar's consultation note dated March 31, 2017, the patient is a Do Not Resuscitate. 2. Chronic obstructive pulmonary disease followed by Dr. Lamar. 3. Chronic respiratory failure on four liters of oxygen per nasal cannula. 4. Coronary artery disease, status post coronary artery bypass grafting and stent placement. 5. Congestive heart failure. Per Cardiology consultation note dated March 31, 2017, the patient had an echocardiogram December 09, 2016, at [place], with an ejection fraction of 35% to 40%. 6. Peripheral vascular disease, status post carotid endarterectomy. 7. Hypertension. 8. Hyperlipidemia. Unit #: [id number] #: [id number] Patient: HARLEY MILLER 9. History of lung cancer, status post radiation treatment. 10. Chronic anemia. 11. Gastroesophageal reflux disease. 12. Anxiety. PAST SURGICAL HISTORY 1. Coronary artery bypass grafting. 2. Cholecystectomy. 3. Right carotid endarterectomy. 4. Left finger incision and drainage. SOCIAL HISTORY The patient is a former smoker. He quit in 1999. He ambulates with a walker. His code status is a Do Not Resuscitate per Pulmonary consultation note in March 2017. The patient is a somewhat limited historian. I attempted to call the patient's daughter, Iris Perez, to confirm code status but was unable to reach her. Will discuss with the patient and/or family when they are available. FAMILY HISTORY Notable for his brother having sudden cardiac in his 60s. ALLERGIES Penicillin. HOME MEDICATIONS 1. Isosorbide mononitrate 30 mg daily. 2. DuoNebs q.4 hours. 3. Pantoprazole 40 mg daily. 4. Coreg 6.25 mg daily. 5. Aspirin 81 mg daily. 6. Plavix 75 mg daily. 7. Lasix 20 mg daily. 8. Nitroglycerin 0.4 mg q.5 minutes p.r.n. 9. Prednisone 5 mg daily. 10. Tylenol 325 mg q.4 hours p.r.n. REVIEW OF SYSTEMS A complete review of systems is somewhat limited due to the patient's altered mental status. PHYSICAL EXAMINATION VITAL SIGNS: Temperature is 97.9, pulse 74, respirations 17, blood pressure 103/51, and oxygen saturation 100% on 4 liters. GENERAL: Patient is a male who is lethargic but wakes to physical stimuli. HEENT: Head is atraumatic. Mucous membranes are moist. NECK: Supple. Trachea is midline. CARDIOVASCULAR: Regular rate and rhythm. LUNGS: Inspiratory and expiratory crackles and wheezes. Breathing is mildly labored. The patient is currently on BiPAP. ABDOMEN: Soft and nontender with bowel sounds present in all four quadrants. EXTREMITIES: With 1+ pitting edema. NEUROLOGIC: Patient is lethargic. He wakes to physical stimuli. He is moving all extremities. He follows commands. He is not answering questions other than shaking his head yes or no. PSYCHIATRIC: Difficult to assess. He is cooperative but was refusing Unit #: [id number] #: [id number] Patient: HARLEY MILLER antibiotics, as well as BiPAP in the emergency department. SKIN: Skin of examined areas is warm and dry. DIAGNOSTIC STUDIES LABORATORY: Troponin is less than 0.05. Arterial blood gas shows a pH of 7.27, PCO2 of 82.8, and PO2 of 211 on 4 liters. Complete blood count notable for white blood cell count of 13.2 and hemoglobin and hematocrit 10.3 and 32.1, respectively. Lactic acid is 0.9. Comprehensive metabolic panel notable for a CO2 of 36, glucose 119, BUN and creatinine 30 and 1.3, respectively, alkaline phosphatase 96, and albumin 3.1. IMAGING: Chest x-ray shows possible right lower lobe infiltrate. CARDIOLOGY: EKG shows normal sinus rhythm with a rate of 74 beats per minute. ASSESSMENT The patient is an 81-year-old male with: 1. Acute on chronic respiratory failure, hypoxic and hypercapnic. The patient is currently on BiPAP. 2. Healthcare-associated pneumonia. The patient initially refused vancomycin and Zosyn. 3. Leukocytosis with an initial white blood cell count of 13.2. 4. Chronic obstructive pulmonary disease exacerbation. The patient received 125 mg of Solu-Medrol in the emergency department. 5. Coronary artery disease, status post coronary artery bypass grafting. 6. Congestive heart failure with ejection fraction as noted above. The patient received 20 mg of Lasix in the emergency department. 7. Peripheral vascular disease, status post carotid endarterectomy. 8. Hypertension. 9. Hyperlipidemia. 10. History of lung cancer, status post radiation treatment. 11. Gastroesophageal reflux disease. 12. Anxiety. PLAN 1. Admit to ICU. 2. N.p.o. except medications. 3. Consult Dr. Lamar regarding acute on chronic respiratory failure. 4. Blood cultures x2. 5. Sputum culture and sensitivity. 6. Procalcitonin level. 7. Streptococcal and legionella urine antigens. 8. Vancomycin, tobramycin, and aztreonam IV for healthcare-associated pneumonia pending further workup. 9. DuoNebs q.4 hours. 10. Repeat ABG later this afternoon. 11. Clarify code status. 12. Serial cardiac enzymes. 13. Check BNP. 14. Monitor blood pressure closely. 15. P.r.n. Tylenol. 16. Solu-Medrol 80 mg IV q.12 hours. 17. Neuro check. 18. Repeat labs in the morning. 19. SCDs for DVT prophylaxis. 20. Protonix for GI prophylaxis since the patient will be on Solu-Medrol. Unit #: [id number] #: [id number] Patient: HARLEY MILLER Thirty-one (31) minutes critical care time spent in the care of this patient (3:45-4:16 p.m.). Dictated by... Cindy Metzger M.D. AW/am TD: 05/07/2017 16:35 JOB #: [id number] ADDENDUM I was able to reassess the patient when he was more awake. He is currently awake, alert, and oriented x3. He actually states that he is a Full Code. However, currently he is refusing BiPAP. He is on four liters. I am going to repeat an ABG in 30 minutes. Dictated by Nely Vazquez/am TD: 05/07/2017 17:47 JOB #: [id number] CC: Augustin/invision Please Delete HISTORY AND PHYSICAL Page 1 of 1 X Cindy Metzger MD HISTORY AND PHYSICAL
--- NOTE | ~2017-05-07 | DS ---
Unit #: [id number] #: [id number] Patient: HARLEY MILLER [id number] [address] [place], [place] [address] [id number] I MR#: [id number] NAME: HARLEY MILLER. ROOM: 317 Age: 81 Sex: M Admission Date: 05/07/2017 : 1935 Discharge Date: 05/10/2017 Attending Physician: Krystina Oropeza M.D. Primary Care Physician: Sylvia Negron M.D. DISCHARGE SUMMARY REASON FOR ADMISSION Dyspnea. HISTORY OF PRESENT ILLNESS/HOSPITAL COURSE Please refer to H and P for complete details of initial part of hospital stay. Subsequently, the patient was admitted, placed on telemetry floor. Consultation was placed to (1) and associates for evaluation. The patient was placed on IV antibiotics, Solu-Medrol, as well as routine aerosols. These were gradually transitioned into p.o. medications. At time of discharge it is recommended by pulmonary service he continue Zithromax at 250 mg p.o. daily x4 days, as well as a prednisone taper down to his home dose of prednisone. He was also given a prescription for Dulera. DNR status was reconfirmed with the patient. He clinically is stable for discharge. Overall, his prognosis is guarded secondary to associated comorbid conditions, including prior history of systolic heart failure, as well as prior history of lung carcinoma. At this point in time he will be discharged home. He has Hospice services currently following him while at home, and they will picker / packer service at time of discharge. Clinically stable; however, chance of readmission is significantly elevated. Overall long-term prognosis of this patient is guarded. FINAL DISCHARGE DIAGNOSES 1. Dyspnea, multifactorial. 2. Chronic obstructive pulmonary disease exacerbation. 3. Chronic respiratory failure. 4. Coronary artery disease. 5. Prior history of systolic heart failure, ejection fraction 25% to 30%. 6. Peripheral vascular disease. 7. Prior history of lung carcinoma status post resection. 8. Hypertension. 9. Failure to thrive. 10. Hard of hearing. 11. Qzxa-vt-thlomawi dementia. 12. Anemia. 13. Gastroesophageal reflux disease. 14. Generalized anxiety disorder. 15. Chronic immobility syndrome. Unit #: [id number] #: [id number] Patient: HARLEY MILLER DIAGNOSTIC STUDIES FINAL DISCHARGE LABORATORY STUDIES: Creatinine of 1.3, GFR 50. CBC shows a hemoglobin of 9.5, white count 15. All numbers appear to be close to baseline. Blood cultures have not revealed any acute bacterial growth this hospital stay. FINAL DISCHARGE MEDICATIONS 1. Zithromax 250 mg p.o. daily x4 days. 2. Prednisone 20 mg taper down to home dose of 5 mg on a daily basis. 3. DuoNeb aerosol solution q.4-6 hours. 4. Tylenol 650 mg p.o. q.6 p.r.n. 5. Dulera 200/5 two puffs b.i.d. 6. Lasix 20 mg p.o. daily. 7. Aspirin 81 mg p.o. daily. 8. Plavix 75 mg p.o. daily. 9. Protonix 40 mg p.o. daily. 10. Imdur 30 mg p.o. daily. 11. Sublingual nitroglycerin at directed. 12. Coreg has been discontinued and changed to Toprol XL 25 mg p.o. daily. Dictated by... Nely Villa/roseanna TD: 05/11/2017 10:45 JOB #: [id number] DISCHARGE SUMMARY Page 1 of 1 X Krystina Oropeza MD X DISCHARGE SUMMARY
[~2017-05-07 11:57] MED LIST changes: +COREG6.25 MG PO; +IPRAT-ALBUT 0.5-3 ML NEB; +ISOSORBIDE MONO30 M1 PO; +PATIENT'S PHARMACY; +REQUIP1 MG PO; +SYMBICORT INH
[2017-05-07] MEDS ORDERED: IPRATR-ALBUTEROL3 ML INH (13:30)
[2017-05-07] MEDS ORDERED: NITROQUICK0.4 MG PO (13:30)
[2017-05-07] MEDS ORDERED: PREDNISONE PO (13:31)
[2017-05-07] MEDS ORDERED: TYLENOL325 M1 PO (13:31)
[2017-05-07 13:59] LABS: POC - CKMB 3.8 ng/mL (0.0-7.9); POC - TROPONIN <0.05 ng/mL (<=0.05)
[2017-05-07 14:07] LABS: ARTERIAL BLD GAS O2 SATURATION 97.5 % (90.0-100.0)
[2017-05-07 14:09] LABS: ARTERIAL BLOOD GAS ART SITE RIGHT BRACHIAL; ARTERIAL BLOOD GAS PCO2 82.8 mmHg (35.0-45.0); ARTERIAL DRAW? YES
[2017-05-07 14:10] LABS: ARTERIAL BLOOD GAS DELIVERY NASAL CANNULA
[2017-05-07 14:11] LABS: BASOPHIL% 0.2 % (0-2.5); EOSINOPHIL# 0.1 X10e3 (0-0.7); EOSINOPHIL% 0.5 % (0.0-7.0); HEMATOCRIT 32.1 % (38.0-50.0); HEMOGLOBIN 10.3 gm/dL (13.0-16.0); LYMPHOCYTE# 0.3 X10e3 (1.0-3.5); LYMPHOCYTE% 2.3 % (17.0-45.0); MEAN CELL VOLUME 101.4 FL (83-96); MEAN CORPUSCULAR HEMOGLOBIN 32.5 PG (28-34); MONOCYTE# 0.5 X10e3 (0-1.0); NEUTROPHIL# 12.3 X10e3 (1.5-7.1); PLATELET COUNT 225 X10e3 (140-420); RED BLOOD COUNT 3.17 X10e (3.90-5.60); RED CELL DISTRIBUTION WIDTH 14.7 % (11.0-15.5); WHITE BLOOD COUNT 13.2 X10e3 (4.0-10.5)
[2017-05-07 14:17] LABS: DIFF IND NO
[2017-05-07 14:53] LABS: ALBUMIN SERUM 3.1 g/dL (3.5-5.0); BILIRUBIN, DIRECT 0.1 mg/dL (0.0-0.2); BILIRUBIN,INDIRECT 0.1 mg/dL (0.0-0.9); BILIRUBIN,TOTAL 0.2 mg/dL (0.2-2.0); BUN/CREATININE RATIO 23.07; CALCIUM SERUM 9.3 mg/dL (8.4-10.2); CREATININE SERUM 1.3 mg/dL (0.6-1.4); GLOM FILT RATE Estimated 50.5 mL/min (>60); POTASSIUM 4.7 mmol/L (3.5-5.1); PROTEIN TOTAL SERUM 6.5 g/dL (6.0-8.3)
[2017-05-07 17:50] LABS: ARTERIAL BLD GAS O2 SATURATION 97.4 % (90.0-100.0); ARTERIAL BLOOD GAS HCO3 38.5 mmol/L; ARTERIAL BLOOD GAS MET HB 0.9 %sat (0.0-2.0); ARTERIAL BLOOD GAS pH 7.276 (7.350-7.450)
[2017-05-07 17:52] LABS: ARTERIAL BLOOD GAS PCO2 82.8 mmHg (35.0-45.0)
[2017-05-07 17:54] LABS: ARTERIAL BLOOD GAS ALLEN TEST NORMAL; ARTERIAL BLOOD GAS ART SITE RIGHT BRACHIAL; ARTERIAL BLOOD GAS DELIVERY NASAL CANNULA; ARTERIAL DRAW? YES
[2017-05-07 21:16] LABS: CK TOTAL 25 IU/L (36-174)
[2017-05-08 01:17] LABS: CK TOTAL 20 IU/L (36-174)
[2017-05-08 05:05] LABS: BASOPHIL% 0.1 % (0-2.5); HEMATOCRIT 32.2 % (38.0-50.0); HEMOGLOBIN 10.5 gm/dL (13.0-16.0); LYMPHOCYTE# 0.3 X10e3 (1.0-3.5); LYMPHOCYTE% 3.3 % (17.0-45.0); MEAN CELL VOLUME 101.4 FL (83-96); MEAN CORPUSCULAR HGB CONC 32.6 g/dL (30-36); MEAN PLATELET VOLUME 7.9 FL (6.5-11.5); MONOCYTE# 0.1 X10e3 (0-1.0); MONOCYTE% 1.2 % (3.0-12.0); NEUTROPHIL# 7.7 X10e3 (1.5-7.1); NEUTROPHIL% 95.4 % (40-75); PLATELET COUNT 222 X10e3 (140-420); RED BLOOD COUNT 3.17 X10e (3.90-5.60); RED CELL DISTRIBUTION WIDTH 14.3 % (11.0-15.5); WHITE BLOOD COUNT 8.1 X10e3 (4.0-10.5)
[2017-05-08 05:08] LABS: DIFF IND NO
[2017-05-08 05:51] LABS: ALBUMIN SERUM 2.7 g/dL (3.5-5.0); BILIRUBIN,TOTAL 0.4 mg/dL (0.2-2.0); BUN/CREATININE RATIO 27.27; CREATININE SERUM 1.1 mg/dL (0.6-1.4); GLOM FILT RATE Estimated 61.8 mL/min (>60); POTASSIUM 4.8 mmol/L (3.5-5.1); PROTEIN TOTAL SERUM 5.8 g/dL (6.0-8.3)
[2017-05-08 08:06] LABS: LEGIONELLA AG URINE NEG (NEG)
[2017-05-09 05:34] LABS: HEMOGLOBIN 9.9 gm/dL (13.0-16.0); MEAN CELL VOLUME 98.8 FL (83-96); MEAN CORPUSCULAR HEMOGLOBIN 32.6 PG (28-34); MEAN PLATELET VOLUME 7.6 FL (6.5-11.5); RED BLOOD COUNT 3.03 X10e (3.90-5.60); RED CELL DISTRIBUTION WIDTH 13.9 % (11.0-15.5)
[2017-05-09 05:35] LABS: WHITE BLOOD COUNT 16.1 X10e3 (4.0-10.5)
[2017-05-09 06:49] LABS: BUN/CREATININE RATIO 37.5; CALCIUM SERUM 9.1 mg/dL (8.4-10.2); CREATININE SERUM 1.2 mg/dL (0.6-1.4); GLOM FILT RATE Estimated 55.6 mL/min (>60)
[2017-05-10 01:35] LABS: CK TOTAL 11 IU/L (36-174)
[2017-05-10 05:01] LABS: HEMATOCRIT 28.9 % (38.0-50.0); HEMOGLOBIN 9.5 gm/dL (13.0-16.0); MEAN CELL VOLUME 99.1 FL (83-96); MEAN CORPUSCULAR HEMOGLOBIN 32.5 PG (28-34); MEAN CORPUSCULAR HGB CONC 32.8 g/dL (30-36); MEAN PLATELET VOLUME 7.9 FL (6.5-11.5); RED BLOOD COUNT 2.92 X10e (3.90-5.60); RED CELL DISTRIBUTION WIDTH 14.3 % (11.0-15.5); WHITE BLOOD COUNT 15.3 X10e3 (4.0-10.5)
[2017-05-10 06:25] LABS: CREATININE SERUM 1.3 mg/dL (0.6-1.4); GLOM FILT RATE Estimated 50.5 mL/min (>60)
[2017-05-10] MEDS ORDERED: TOPROL XL PO (14:16)
[2017-05-10] MEDS ORDERED: ZITHROMAX PO (14:17)
[2017-05-10] MEDS ORDERED: DULERA 200 MCG/13 GM INH (14:17)
== END 2017-05-10 16:42 | DRG 291 ==
LOC: CED 11:57 → CEDOF 16:10 → CED 16:52 → CEDOF 16:52 → C5C 21:24 → CEDOF 21:24 → C5C 05-08 06:46 → C3A PCU 05-09 00:14
PROVIDERS: Emergency Medicine; Family Medicine; Internal Medicine
DX: I11.0 Hypertensive heart disease with heart failure (principal); J18.9 Pneumonia, unspecified organism; J96.21 Acute and chronic respiratory failure with hypoxia; E43 Unspecified severe protein-calorie malnutrition; J44.0 Chronic obstructive pulmonary disease with (acute) lower respiratory infection; Z99.81 Dependence on supplemental oxygen; I42.9 Cardiomyopathy, unspecified; F03.90 Unspecified dementia, unspecified severity, without behavioral disturbance, psychotic disturbance, mood disturbance, and anxiety; J96.22 Acute and chronic respiratory failure with hypercapnia; J44.1 Chronic obstructive pulmonary disease with (acute) exacerbation; Z68.1 Body mass index [BMI] 19.9 or less, adult; D72.829 Elevated white blood cell count, unspecified; I25.10 Atherosclerotic heart disease of native coronary artery without angina pectoris; Z95.1 Presence of aortocoronary bypass graft; E78.5 Hyperlipidemia, unspecified; K21.9 Gastro-esophageal reflux disease without esophagitis; F41.9 Anxiety disorder, unspecified; Z66 Do not resuscitate; I73.9 Peripheral vascular disease, unspecified; Z90.49 Acquired absence of other specified parts of digestive tract; Z88.0 Allergy status to penicillin; Z79.82 Long term (current) use of aspirin; R94.31 Abnormal electrocardiogram [ECG] [EKG]; I50.43 Acute on chronic combined systolic (congestive) and diastolic (congestive) heart failure; Z85.118 Personal history of other malignant neoplasm of bronchus and lung; R62.7 Adult failure to thrive; D64.9 Anemia, unspecified
CPT/HCPCS: 36600; 71010; 80048; 80053; 80076; 82308; 82550; 82553; 82803; 83605; 83735; 83880; 84100; 84484; 85025; 85027; 87040; 87070; 87205; 87449; 87899; 93005; 94640; 94660; 94664; 94760; 96374; 96375; 99291; C9113; J0456; J1940; J2060; J2920; J2930; J3260; J3370

== ENCOUNTER 2017-05-17 09:11 | Emergency (ER) | payer OTHER, MEDICARE, BC ==
[~2017-05-17] VITALS: Ht 170.2 cm; Wt 57.1 kg
[~2017-05-17 09:11] MED LIST changes: +DULERA 200 MCG/13 GM INH; +IPRATR-ALBUTEROL3 ML INH; +NITROQUICK0.4 MG PO; +PREDNISONE PO; +TOPROL XL PO; +TYLENOL325 M1 PO; +ZITHROMAX PO
[2017-05-17 09:44] LABS: BASOPHIL% 0.3 % (0-2.5); EOSINOPHIL% 0.4 % (0.0-7.0); HEMATOCRIT 32.6 % (38.0-50.0); HEMOGLOBIN 10.7 gm/dL (13.0-16.0); LYMPHOCYTE# 0.6 X10e3 (1.0-3.5); LYMPHOCYTE% 5.5 % (17.0-45.0); MEAN CORPUSCULAR HEMOGLOBIN 32.8 PG (28-34); MEAN CORPUSCULAR HGB CONC 32.8 g/dL (30-36); MEAN PLATELET VOLUME 7.9 FL (6.5-11.5); MONOCYTE# 0.9 X10e3 (0-1.0); NEUTROPHIL# 8.6 X10e3 (1.5-7.1); NEUTROPHIL% 84.8 % (40-75); PLATELET COUNT 215 X10e3 (140-420); RED BLOOD COUNT 3.26 X10e (3.90-5.60); RED CELL DISTRIBUTION WIDTH 15.2 % (11.0-15.5); WHITE BLOOD COUNT 10.2 X10e3 (4.0-10.5)
[2017-05-17 09:49] LABS: DIFF IND NO
[2017-05-17 09:53] LABS: INR 0.9; PROTHROMBIN TIME (PATIENT) 9.6 SECONDS (9.5-12.4)
[2017-05-17 10:01] LABS: PARTIAL THROMBOPLASTIN TIME 21.5 SECONDS (25.6-38.1)
[2017-05-17 10:02] LABS: BUN/CREATININE RATIO 31.81; CALCIUM SERUM 8.5 mg/dL (8.4-10.2); CREATININE SERUM 1.1 mg/dL (0.6-1.4); GLOM FILT RATE Estimated 61.8 mL/min (>60); POTASSIUM 4.6 mmol/L (3.5-5.1)
== END 2017-05-17 10:15 | disposition home or self-care (01) ==
LOC: SED 09:11
PROVIDERS: Student in an Organized Health Care Education/Training Program
DX: E87.5 Hyperkalemia (principal); J44.9 Chronic obstructive pulmonary disease, unspecified; Z95.1 Presence of aortocoronary bypass graft; Z88.0 Allergy status to penicillin; Z79.82 Long term (current) use of aspirin; Z79.899 Other long term (current) drug therapy
CPT/HCPCS: 36415; 80048; 85025; 85610; 85730; 99285